=== PATIENT | male | born 1955 | race Caucasian/White ===

== ENCOUNTER 2017-03-01 08:48 | Day surgery (SDC) | payer BC ==
[~2017-03-01 08:48] MED LIST: ALPRAZolam 0.5 MG TAB PO PRN; ASPIRIN 325 MG TAB PO STA; ATORVASTATIN 80 MG TAB PO STA; NITROGLYCERIN SL TABS 0.4 MG TAB SUBLINGUAL PRN; SODIUM CHLORIDE 0.9% 1,000 ML in EMPTY BAG 1 BAG IV ONE
[2017-03-01 09:20] VITALS: RESP 18
[2017-03-01] MEDS: ALPRAZolam 0.25 MG TAB PO PRN ×2 (09:30→21:22)
[2017-03-01 09:31] LABS: Basophils # (A) 0.1 k/uL (0-0.2); Basophils % (A) 1 %; Eosinophils # (A) 0.3 k/uL (0-0.7); Eosinophils % (A) 4 %; HCT 42.5 % (39.0-53.0); HDW 2.72; HGB 14.6 gm/dL (13.0-17.5); Luc # (Auto) 0.07; Luc % (Auto) 1; Lymphocytes # (A) 1.8 k/uL (1.0-4.8); Lymphocytes % (A) 22 %; MCH 31.5 pg (25.0-35.0); MCHC 34.3 g/dL (31.0-37.0); MCV 91.7 fL (80.0-100.0); Mean Platelet Volume 8.3; Monocytes # (A) 0.5 k/uL (0-1.0); Monocytes % (A) 6 %; Neutrophils # (A) 5.6 k/uL (1.3-7.7); Neutrophils % (A) 67 %; RBC 4.64 m/uL (4.30-5.90); RDW 12.7 % (11.5-15.5); WBC 8.4 k/uL (3.8-10.6); WBC (Perox) 8.22
[2017-03-01 09:38] LABS: Anion Gap 7 mmol/L; Blood Urea Nitrogen 11 mg/dL (9-20); Calcium 8.7 mg/dL (8.4-10.2); Carbon Dioxide 23 mmol/L (22-30); Chloride 106 mmol/L (98-107); Glucose 95 mg/dL (74-99); Non-African American GFR(MDRD) >60 (>60 ml/min/1.73 sqM); Potassium 4.2 mmol/L (3.5-5.1); Sodium 136 mmol/L (137-145)
[2017-03-01] MEDS ORDERED: fentaNYL (PF) 50 MCG/ML 2 ML AMP ONE (10:18)
[2017-03-01] MEDS ORDERED: LIDOCAINE 2% INJ 20 MG/ML (20 ML MDV) ONE (10:18)
[2017-03-01] MEDS ORDERED: MIDAZOLAM 2 MG/2 ML VIAL ONE (10:18)
[2017-03-01] MEDS ORDERED: fentaNYL (PF) 50 MCG/ML 2 ML AMP IVP ONE (10:30)
[2017-03-01] MEDS: MIDAZOLAM 2 MG/2 ML VIAL IVP ONE ×2 (10:30→10:33)
[2017-03-01] MEDS ORDERED: LIDOCAINE 2% INJ 20 MG/ML SQ ONE (10:33)
[2017-03-01] MEDS ORDERED: BIVALIRUDIN BOLUS 250 MG/50 ML IV ONE (11:15)
[2017-03-01] MEDS ORDERED: BIVALIRUDIN 250 MG in SODIUM CHLORIDE 0.9% 50 ML IV ONE ×2 (11:15→12:01)
[2017-03-01] MEDS ORDERED: NITROGLYCERIN 1000MCG/10ML SYRINGE INTRACORON ONE ×2 (11:23→12:05)
[2017-03-01] MEDS ORDERED: NITROGLYCERIN 1000MCG/10ML SYRINGE IV ONE (11:23)
--- NOTE | 2017-03-01 11:32 | P.PCN ---
Date of Procedure: 03/01/17 Preoperative Diagnosis: Angina and exertional shortness of breath Postoperative Diagnosis: Diffuse coronary artery disease with total occlusion of the distal RCA and also occlusion of the graft to the diagonal Procedure(s) Performed: HISTORY: This is a 61-year-old gentleman with history of ischemic heart disease with previous bypass surgery and also stent placement of the proximal RCA, has been experiencing exertional shortness of breath, which is recent in onset. His EKG showed some T-wave inversion in anterior leads. His echocardiogram showed fair LV function with mild hypokinesis of the inferior wall. Patient is advised to have a cardiac catheterization for definitive diagnosis CONSENT:I have discussed the risks, benefits and alternative therapies for the above-mentioned procedure and for both sedation/analgesia as well as necessary blood product administration, if indicated, as they pertain to this patient. The patient has indicated understanding and acceptance of the risks and procedures discussed. PROCEDURE: Patient was brought to the lab in a fasting state. Patient was given some IV sedation. The right groin is infiltrated with lidocaine and right femoral artery was entered using Seldinger technique. A 6-Swazi catheter was left in place and selective coronary arteriography and selective injection of the 2 vein grafts and the BENOIT graft was performed. Patient tolerated the procedure well. Femoral angiogram was performed . Patient went on to have stent placement of the RCA by Dr. ANDRES Billingsley. Conscious Sedation: Versed : 2 mg Fentanyl : 50g Duration :30minutes HEMODYNAMICS: The aortic pressure is about 160/80. Left middle end-diastolic pressure is 20-25. There was no gradient across the aortic valve SELECTIVE CORONARY ARTERIOGRAPHY: LEFT MAIN: This is a normal length with about 40-50% distal stenosis THE LEFT ANTERIOR DESCENDING CORONARY ARTERY: . This is totally occluded after first diagonal branch. The first diagonal branch has about 60-70% stenosis. THE LEFT CIRCUMFLEX AND IS CORONARY ARTERY: This is a moderate caliber vessel with a diffuse disease. There is a small OM branch which has ostial 80-90% stenosis which is stable compared to the previous studies THE RIGHT CORONARY ARTERY: . This is a good caliber vessel and dominant in distribution. The proximal RCA has a mild in-stent stenosis. The distal RCA is totally blocked. There were collaterals from the LAD to the distal RCA. The vein graft to the circumflex: This is totally occluded at the proximal anastomosis. The vein graft to the diagonal: This is totally occluded at the proximal anastomosis. The BENOIT graft to the LAD: This is patent throat its length and also to this, stenosis. There is good flow to the LAD which provides collateral to the RCA.. LEFT VENTRICULOGRAPHY: This was not performed FINAL IMPRESSION: Total occlusion of the distal RCA. Total occlusion of the vein graft to the circumflex and also to the diagonal. Patent BENOIT graft to the LAD. Diffuse disease involving the circumflex, which is stable compared to the previous study. There is a borderline lesion in the proximal portion of the diagonal PLAN: Stent placement of the distal RCA being done by Dr. ANDRES Billingsley. PROGNOSIS: fair.
[2017-03-01] MEDS ORDERED: fentaNYL (PF) 50 MCG/ML 2 ML AMP IV ONE (11:35)
[2017-03-01] MEDS ORDERED: TICAGRELOR 90 MG TAB ONE (12:03)
[2017-03-01] MEDS ORDERED: TICAGRELOR 90 MG TAB PO ONE (12:05)
[2017-03-01] MEDS ORDERED: IOHEXOL 350 MG/ML 125ML BOTTLE INJ ONE (12:11)
[2017-03-01] MEDS ORDERED: RX INFO: IV CONTRAST WAS GIVEN 1 EACH MISC MISCELLANE PRN (12:46)
[2017-03-01] MEDS ORDERED: NITROGLYCERIN SL TABS 0.4 MG TAB SUBLINGUAL PRN (12:46)
[2017-03-01] MEDS ORDERED: ZOLPIDEM 5 MG TAB PO PRN (12:46)
[2017-03-01] MEDS ORDERED: ATROPINE SULFATE 0.1 MG/ML 10ML SYRINGE IV PRN (12:46)
[2017-03-01] MEDS ORDERED: MAG HYDROX/AL HYDROX/SIMETH 30 ML CUP PO PRN (12:46)
[2017-03-01] MEDS: ISOSORBIDE MONONITRATE ER 30 MG TAB.ER.24H PO SCH (13:30)
--- NOTE | 2017-03-01 14:22 | XR ---
EXAMINATION TYPE: XR chest 1V portable DATE OF EXAM: 03/01/2017 Comparison: 08/16/[address] 02/22/2017 Clinical History: 62-year-old male shortness of breath Findings: Median sternotomy wires are present with post-CABG clips. Heart is mildly enlarged. Mild diffuse inte rstitial prominence as a chronic appearance. No jose angel consolidation or significant pleural effusion. Prominent aortic knob likely corresponds to the vascular ectasia seen on recent CT. Surgical staple a t the left shoulder. Impression: Borderline to mild cardiomegaly and chronic appearing changes. Ectatic thoracic aorta. No acute proce ss seen.
[2017-03-01] MEDS: SODIUM CHLORIDE 0.9% 1,000 ML IV SCH (16:21)
[2017-03-01] MEDS: VARENICLINE 1 MG TAB PO SCH (18:38)
[2017-03-01] MEDS: METOPROLOL TARTRATE 25 MG TAB PO SCH (21:22)
[2017-03-01] MEDS: TICAGRELOR 90 MG TAB PO SCH (21:22)
--- NOTE | 2017-03-01 21:58 | LTR ---
DATE OF SERVICE: 03/01/[address] Larios: Thank you for the opportunity to participate in the care of Mr. Lucho Segundo. Please find enclosed a detailed PTCA report for the records. He had an excellent angiographic result. The previously stented proximal RCA was still patent. Thank you for your referral and please call for questions. With kindest regards, Sincerely, GALILEO / RADHAN: [id number] /
--- NOTE | 2017-03-01 21:58 | PTCA ---
PERCUTANEOUSTRANS CORORONARY ANGIOGRAPHY DATE OF SERVICE: 03/01/2017. PROCEDURE: PTCA and stenting of totally occluded distal right coronary artery and PLV branch. PERFORMED BY: Dr. Amos Billingsley. SEDATION: Moderate conscious sedation time 60 minutes. CLINICAL INFORMATION: Mr. Lucho Segundo is a 62-year-old gentleman history of CAD, hypertension, hyperlipidemia, who underwent stenting of proximal RCA performed by me in the past. He also has a previous bypass surgery with a vein graft to the diagonal that has been occluded as well. He was admitted to the hospital because of symptoms of exertional shortness of breath, which appeared to be anginal equivalence and Dr. Lockhart performed a cardiac cath, which revealed that the previously stented RCA was widely patent with a 30% narrowing, but distally the vessel was totally occluded without much flow and there was collateralization already. He was advised intervention that was performed in the same setting. PROCEDURE NOTE: The existing 6-Kazakh introducer in the right femoral artery was used to perform the procedure. A standard right Kathi type guide catheter was used to cannulate the right coronary artery. A BMW wire was used to cross the lesion. Wire was kept distally. Using a 2.5 caliber 12 mm long trek balloon, I dilated the distal RCA as well as the PLV branch of RCA. The wire was actually in the PDA branch. It was repositioned in the PLV branch. I then noted that there was a significant lesion in the PLV branch of a good caliber vessel. PLV was much smaller than PDA. There was also a distal RCA lesion and right at the bifurcation there was a 99% stenosis. This was a superdominant RCA. I advanced another for a whisper wire and positioned this in the PLV branch distally. The PLV lesion was dilated with a 2.5 caliber 12 mm long NC Trek balloon. I then stented the PLV branch with a 2.5 caliber 8 mm long Xience stent. The distal RCA was addressed with 2 stents, one was a 12 mm long 3.25 caliber stent right at the bifurcation and another one proximal to it was a 15 mm long 3.25 caliber Xience stent. With 3 stents, one in the PLV branch and two in the distal RCA the patient had an excellent angiographic result. He had some chest discomfort but did not have significant EKG changes. Excellent angiographic result without complication was achieved. The patient received Angiomax bolus and infusion as per protocol. He received 180 mg of Brilinta and the sheath was then taken out and an Angio-Seal device used to secure hemostasis. He was sent to the room in a stable condition. Excellent angiographic result without complication was achieved. The distal RCA and PL branch, RCA were dilated with drug-eluting stents. MMODL / IJN: [id number] /
[2017-03-01] MEDS: ACETAMINOPHEN TAB 325 MG TAB PO PRN (22:04)
[2017-03-02 06:25] LABS: Basophils # (A) 0.1 k/uL (0-0.2); Basophils % (A) 1 %; CH 30.9; CHCM 34.3; Eosinophils # (A) 0.3 k/uL (0-0.7); Eosinophils % (A) 4 %; HCT 41.5 % (39.0-53.0); HDW 2.48; HGB 14.1 gm/dL (13.0-17.5); Luc # (Auto) 0.13; Luc % (Auto) 2; Lymphocytes # (A) 1.6 k/uL (1.0-4.8); Lymphocytes % (A) 20 %; MCH 30.8 pg (25.0-35.0); MCV 90.6 fL (80.0-100.0); Mean Platelet Volume 8.6; Monocytes # (A) 0.4 k/uL (0-1.0); Monocytes % (A) 5 %; Neutrophils # (A) 5.6 k/uL (1.3-7.7); Neutrophils % (A) 69 %; RBC 4.58 m/uL (4.30-5.90); RDW 13.9 % (11.5-15.5); WBC 8.1 k/uL (3.8-10.6); WBC (Perox) 7.77
[2017-03-02] MEDS: SODIUM CHLORIDE 0.9% 1,000 ML IV SCH (06:33)
[2017-03-02 06:36] LABS: Anion Gap 6 mmol/L; Blood Urea Nitrogen 11 mg/dL (9-20); Calcium 9.2 mg/dL (8.4-10.2); Carbon Dioxide 26 mmol/L (22-30); Chloride 103 mmol/L (98-107); Glucose 96 mg/dL (74-99); Non-African American GFR(MDRD) >60 (>60 ml/min/1.73 sqM); Potassium 4.6 mmol/L (3.5-5.1); Sodium 135 mmol/L (137-145)
[2017-03-02] MEDS ORDERED: PANTOPRAZOLE 40 MG TABLET PO SCH (07:30)
[2017-03-02] MEDS: ISOSORBIDE MONONITRATE ER 30 MG TAB.ER.24H PO SCH (08:40)
[2017-03-02] MEDS: VARENICLINE 1 MG TAB PO SCH (08:40)
[2017-03-02] MEDS: METOPROLOL TARTRATE 25 MG TAB PO SCH (08:41)
[2017-03-02] MEDS: TICAGRELOR 90 MG TAB PO SCH (08:42)
[2017-03-02] MEDS ORDERED: buPROPion XL 150 MG TAB.ER.24H PO SCH (09:00)
[2017-03-02] MEDS ORDERED: SERTRALINE 100 MG TAB PO SCH (09:00)
[2017-03-02] MEDS ORDERED: ASPIRIN 81 MG PO SCH (09:00)
[2017-03-02] MEDS ORDERED: ISOSORBIDE MONONITRATE ER 30 MG TAB.ER.24H PO SCH (09:00)
[2017-03-02] MEDS ORDERED: LISINOPRIL 20 MG TAB PO SCH (09:00)
--- NOTE | 2017-03-02 11:41 | P.PN ---
Subjective Progress Note Date: 03/02/17 Principal diagnosis: Discharge note His is a 61-year-old gentleman with history of ischemic heart disease with prior bypass surgery and also stent placement of the proximal RCA, had been experiencing symptoms of exertional shortness of breath. For this reason Dr. Lockhart brought the patient to the hospital to undergo cardiac catheterization. Subsequent to the heart cath patient underwent angioplasty with stenting of the distal right coronary artery. He was seen and examined this morning, denies any chest pain or difficulty in breathing. He has been up ambulating without any difficulty. EKG shows normal sinus rhythm with no changes from post-PCI. Hemodynamically stable. Objective - Vital Signs Vital signs: Vital Signs Temp 96.9 F L 03/02/17 08:00 Pulse 67 03/02/17 08:00 Resp 18 03/02/17 08:00 BP 132/82 03/02/17 08:00 Pulse Ox 98 03/02/17 08:00 Intake & Output 03/01/17 03/02/17 03/02/17 18:59 06:59 18:59 Intake Total 497.9 600 400 Output Total 900 Balance 497.9 -300 400 Weight 109.769 kg 111.2 kg Intake: IV 257.9 Intake, IV Titration 600 Amount Sodium Chloride 0.9% 1, 600 000 ml @ 75 mls/hr IV . [id number] [facility] Rx#:[id number] Oral 240 400 Output: Urine 900 Other: Voiding Method Urinal Urinal # Voids 1 - Exam PHYSICAL EXAMINATION: HEENT: Head is atraumatic, normocephalic. Pupils equal, round. Neck is supple. There is no elevated jugular venous pressure. HEART EXAMINATION: Heart S1, S2 normal. No murmur or gallop heard. CHEST EXAMINATION: Lungs are clear to auscultation and precussion. No chest wall tenderness is noted on palpation or with deep breathing. ABDOMEN: Soft, nontender. Bowel sounds are heard. No organomegaly noted. Right groin soft, no evidence of any hematoma. EXTREMITIES: 2+ peripheral pulses with no evidence of peripheral edema and no calf tenderness noted. NEUROLOGIC patient is awake, alert and oriented -3. . - Labs CBC & Chem 7: 03/02/17 05:43 03/02/17 05:43 Labs: Abnormal Lab Results - Last 24 Hours (Table) 03/02/17 Range/Units 05:43 Sodium 135 L (137-145) mmol/L Assessment and Plan Plan: Assessment and plan 1 status post angioplasty with stenting of the right coronary artery. #2 known history of coronary artery disease with prior CABG and stenting in the past #3 hypertension #4 hyperlipidemia Plan Patient may be able to be discharged home today. He will have a follow-up appointment with Dr. Lockhart in the office post discharge. He shouldn't may be discharged home today on aspirin 81 mg daily, Lipitor 80 mg daily, Wellbutrin 150 mg daily, Imdur 30 mg daily, lisinopril 20 mg daily, metoprolol tartrate 25 mg one tablet by mouth twice a day, Brilinta 90 mg by mouth twice a day, Chantix 1 mg twice a day and sublingual nitroglycerin as needed for chest pain. Patient has been provided prescriptions for all of the above medications and he has been educated regarding them as well. DNP note has been reviewed, I agree with a documented findings and plan of care. Patient was seen and examined.
[2017-03-02 11:52] VITALS: BMI 37.3
[2017-03-02] MEDS: ACETAMINOPHEN TAB 325 MG TAB PO PRN (12:15)
[2017-03-02 12:41] VITALS: BP 123/72; PULSE 72; TEMP 96.7
[2017-03-02] MEDS ORDERED: ATORVASTATIN 80 MG TAB PO SCH (21:00)
== END 2017-03-02 13:41 | disposition home or self-care (01) ==
LOC: CATHCVL 08:48 → 6SEL 12:48 → CATHCVL 03-02 13:41
PROVIDERS: ATTEND Internal Medicine Cardiovascular Disease
DX: I25.110 Atherosclerotic heart disease of native coronary artery with unstable angina pectoris (principal); I25.700 Atherosclerosis of coronary artery bypass graft(s), unspecified, with unstable angina pectoris; I25.82 Chronic total occlusion of coronary artery; I77.810 Thoracic aortic ectasia; R00.1 Bradycardia, unspecified; Z95.5 Presence of coronary angioplasty implant and graft; I10 Essential (primary) hypertension; I25.2 Old myocardial infarction; E78.00 Pure hypercholesterolemia, unspecified; E66.9 Obesity, unspecified; Z68.35 Body mass index [BMI] 35.0-35.9, adult; Z82.49 Family history of ischemic heart disease and other diseases of the circulatory system; F17.210 Nicotine dependence, cigarettes, uncomplicated; Z79.82 Long term (current) use of aspirin; Z79.899 Other long term (current) drug therapy
CPT/HCPCS: 93459; 80048 ×2; 85025 ×2; 71010; C9600; C9601; C1769 ×3; C1760; C1887; C1725 ×2; C1894; C1874; J2001; J2250; J3010; J0583; Q9967

== ENCOUNTER 2017-07-05 16:49 | Observation (INO) | payer BC ==
[2017-07-05] MEDS ORDERED: NITROGLYCERIN OINT 1 INCH/GM PACKET TOPICAL STA (17:20)
--- NOTE | 2017-07-05 17:29 | ED ---
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 He states he's short of breath also time now/with the least amount of exertion he denies any overt chest pain this time no fevers chills nausea vomiting sweats at this time but he has had some sweats associated with this. He again currently is pain- free does complain some dyspnea at rest but mostly with exertion. MD Complaint: chest pain, other - Related Data Home Medications Medication Instructions Recorded Confirmed Enalapril [Vasotec] 10 mg PO DAILY 02/28/17 07/05/17 Metoprolol Tartrate 25 mg PO BID 02/28/17 07/05/17 Sertraline HCl [Zoloft] 100 mg PO DAILY 02/28/17 07/05/17 buPROPion XL [Wellbutrin XL] 150 mg PO DAILY 02/28/17 07/05/17 Omeprazole [PriLOSEC] 20 mg PO AC-BRKFST 03/01/17 07/05/17 HYDROcodone/APAP 7.5-325MG [[place] 1 tab PO Q4-6H PRN 07/05/17 07/05/17 7.5-325] Isosorbide Mononitrate ER [Imdur] 60 mg PO DAILY 07/05/17 07/05/17 Previous Rx's Medication Instructions Recorded Aspirin 81 mg PO DAILY #30 chew 03/02/17 Atorvastatin [Lipitor] 80 mg PO HS #30 tab 03/02/17 Ticagrelor [Brilinta] 90 mg PO BID tab 03/02/17 Allergies Allergy/AdvReac Type Severity Reaction Status Date / Time No Known Allergies Allergy Verified 07/05/17 17:27 Review of Systems ROS Statement: Those systems with pertinent positive or pertinent negative responses have been documented in the HPI. ROS Other: All systems not noted in ROS Statement are negative. EKG Findings - EKG Results: EKG: interpreted by ERMD (Normal sinus rhythm rate 75 appear interval 150 to QRS 104 QT since QTC of 4:30/489 left exodeviation evidence of inferior posterior infarct of indeterminate age.) Past Medical History Past Medical History: Coronary Artery Disease (CAD), Myocardial Infarction (ID) , Pneumonia Additional Past Medical History / Comment(s): See Chantelle's H&P,SOB, Pneumonia January Last Myocardial Infarction Date:: 2009 History of Any Multi-Drug Resistant Organisms: None Reported Past Surgical History: Appendectomy, Coronary Bypass/CABG, Heart Catheterization With Stent, Hernia Repair Additional Past Surgical History / Comment(s): CABG-at age 38-3 vessel,nishi inguinal hernia,umbilical hernia,lt shoulder surgery Past Anesthesia/Blood Transfusion Reactions: No Reported Reaction Date of Last Stent Placement:: 2009 Past Psychological History: No Psychological Hx Reported Smoking Status: Former smoker Past Alcohol Use History: Occasional Past Drug Use History: None Reported - Past Family History Mother Family Medical History: Coronary Artery Disease (CAD), Pulmonary Embolus Additional Family Medical History / Comment(s): CABG Father Family Medical History: Coronary Artery Disease (CAD) Additional Family Medical History / Comment(s): CABG, traumatic golf cart General Exam - General Exam Comments Initial Comments: This is a well-developed well-nourished awake alert oriented 3 male Limitations: no limitations General appearance: alert, in no apparent distress Head exam: Present: atraumatic, normocephalic, normal inspection Eye exam: Present: normal appearance, PERRL, EOMI. Absent: scleral icterus, conjunctival injection, periorbital swelling ENT exam: Present: normal exam, mucous membranes moist Neck exam: Present: normal inspection. Absent: tenderness, meningismus, lymphadenopathy Respiratory exam: Present: normal lung sounds bilaterally. Absent: respiratory distress, wheezes, rales, rhonchi, stridor Cardiovascular Exam: Present: regular rate, normal rhythm, normal heart sounds. Absent: systolic murmur, diastolic murmur, rubs, gallop, clicks GI/Abdominal exam: Present: soft, normal bowel sounds. Absent: distended, tenderness, guarding, rebound, rigid Extremities exam: Present: normal inspection, full ROM, normal capillary refill. Absent: tenderness, pedal edema, joint swelling, calf tenderness Back exam: Present: normal inspection Neurological exam: Present: alert, oriented X3, CN II-XII intact Psychiatric exam: Present: normal affect, normal mood Skin exam: Present: warm, dry, intact, normal color. Absent: rash Course Vital Signs 07/05/17 16:57 Temperature 97.4 F L Pulse Rate 96 Respiratory 18 Rate Blood Pressure 135/83 O2 Sat by Pulse 96 Oximetry Chest Pain MDM - MDM I did review the imaging and report no acute findings. Patient will be admitted I did discuss case with Dr. Yrn Lockhart will be consulted Disposition Clinical Impression: Unstable angina pectoris Disposition: ADMITTED IP TO THIS HOSP Condition: Stable Referrals: Jamel Larios MD [Primary Care Provider] - 1-2 days
[2017-07-05 17:48] LABS: Basophils % (A) 0 %; Eosinophils # (A) 0.3 k/uL (0-0.7); Eosinophils % (A) 3 %; HCT 40.6 % (39.0-53.0); HGB 14.3 gm/dL (13.0-17.5); Lymphocytes % (A) 23 %; MCH 30.3 pg (25.0-35.0); MCHC 35.2 g/dL (31.0-37.0); Mean Platelet Volume 7.9; Monocytes # (A) 0.6 k/uL (0-1.0); Monocytes % (A) 6 %; Neutrophils # (A) 5.7 k/uL (1.3-7.7); Neutrophils % (A) 66 %; Platelet Count 181 k/uL (150-450); RBC 4.72 m/uL (4.30-5.90); RDW 13.3 % (11.5-15.5); WBC 8.7 k/uL (3.8-10.6)
[2017-07-05 17:59] LABS: ALT 64 U/L (21-72); AST 57 U/L (17-59); Alkaline Phosphatase 72 U/L (38-126); Anion Gap 11 mmol/L; Blood Urea Nitrogen 16 mg/dL (9-20); Calcium 9.3 mg/dL (8.4-10.2); Carbon Dioxide 25 mmol/L (22-30); Chloride 103 mmol/L (98-107); Glucose 115 mg/dL (74-99); Magnesium 1.7 mg/dL (1.6-2.3); Partial Thromboplastin Time 22.9 sec (22.0-30.0); Prothrombin Time 10.2 sec (9.0-12.0); Sodium 139 mmol/L (137-145); Total Protein 6.2 g/dL (6.3-8.2)
[2017-07-05 18:11] LABS: Creatine Kinase 155 U/L (55-170)
--- NOTE | 2017-07-05 18:11 | XR ---
EXAMINATION TYPE: XR chest 2V DATE OF EXAM: 07/05/2017 COMPARISON: 03/01/2017 HISTORY: Chest pain TECHNIQUE: Frontal and lateral views of the chest are obtained. FINDINGS: There is no heart failure nor confluent pneumonic infiltrate. Costophrenic angles are kacie r. There are sternal wires. Bony thorax is intact. IMPRESSION: No active cardiopulmonary disease. Normal heart. No change.
[2017-07-05] MEDS ORDERED: HEPARIN SODIUM,PORCINE 5,000 UNIT/ML 1 ML VIAL IV ONE (18:16)
[2017-07-05] MEDS ORDERED: NITROGLYCERIN SL TABS 0.4 MG TAB SUBLINGUAL PRN (18:16)
[2017-07-05 18:23] LABS: Creatine Kinase MB 1.9 ng/mL (0.0-2.4); Troponin I <0.012 ng/mL (0.000-0.034)
[2017-07-05] MEDS: HYDROcodone/APAP 7.5-325MG 1 EACH TAB PO PRN (18:47)
[2017-07-05] MEDS: HEPARIN SOD,PORK IN 0.45% NACL 25,000 UNIT in 0.45% NACL 1 500ML.BAG IV SCH (18:54)
[2017-07-05] MEDS ORDERED: MAGNESIUM HYDROXIDE 2,400 MG/10 ML CUP PO PRN (19:02)
[2017-07-05] MEDS ORDERED: PROCHLORPERAZINE 5 MG TAB PO PRN (19:02)
[2017-07-05] MEDS ORDERED: ACETAMINOPHEN TAB 325 MG TAB PO PRN (19:02)
[2017-07-05] MEDS ORDERED: CALCIUM CARBONATE 500 MG CHEWABLE PO PRN (19:02)
[2017-07-05] MEDS ORDERED: LORazepam 2 MG/ML INJ IV STA (19:07)
--- NOTE | 2017-07-05 20:31 | HP ---
HISTORY AND PHYSICAL DATE OF ADMISSION: 07/05/2017 PRESENTING COMPLAINT: Short of breath. 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 The patient at the age of 38 had a three-vessel coronary bypass. In February 2017 the patient underwent angioplasty and stenting to the RCA and the PLV branch. The patient's chronic other stable medical conditions include anxiety, GERD, hypertension, hyperlipidemia, herniated disc C6 to C8, and patient is due to go down to [facility] for surgery by Dr. Bingham. The patient yesterday just was sitting down and noticed heaviness in his chest. He was short of breath and was easily getting short- winded doing minimal activity. No chest pressure per se; had some episodes of a little bit of perspiration, which he does get. There was no dizziness, no lightheadedness. He decided to come to see Dr. Lockhart in the office. EKG did show some EKG changes. He was sent in to get admitted for a cardiac catheterization. Patient's is at the bedside. Patient has pain in the left arm, but that is from his radiation from his C6, C7, C8, which is present all the time. He denies any swelling in the lower extremity. REVIEW OF SYSTEMS: CONSTITUTIONAL: None. HEENT: None. RESPIRATORY: As above. CARDIOVASCULAR: As above. No orthopnea. No PND. GENITOURINARY: None. MUSCULOSKELETAL: As above. DERMATOLOGICAL: None. HEMATOLOGICAL: None. LYMPHATICS: None. PSYCHIATRY: Very anxious. NEUROLOGICAL: Referred pain to the left arm from neck pain. PAST MEDICAL HISTORY: 1. Coronary artery disease with coronary artery bypass and stent to the RCA and PLV branch. 2. Anxiety. 3. GERD. 4. Hypertension. 5. Hyperlipidemia. 6. Herniated discs, C6 to C8, pending surgery. PAST SURGICAL HISTORY: 1. Appendectomy. 2. Coronary artery bypass at age 38. 3. Umbilical hernia repair. 4. Left shoulder surgery in 2009. SOCIAL HISTORY: The patient smoked for over 30 years, a pack a day; stopped in January 2017. The patient is . Currently not working. FAMILY HISTORY: Coronary artery disease, pulmonary embolism. HOME MEDICATIONS: 1. Wellbutrin XL 150 mg p.o. daily. 2. Brilinta 90 mg p.o. b.i.d. 3. Zoloft 100 mg p.o. daily. 4. Prilosec 20 mg with breakfast. 5. Lopressor 25 p.o. b.i.d. 6. Imdur ER 60 mg p.o. daily. 7. [place] 7.5 one tablet q.4 p.r.n. 8. Vasotec 10 mg p.o. daily. 9. Lipitor 80 mg at bedtime. 10.Aspirin 81 mg p.o. daily. ALLERGIES: NONE. PHYSICAL EXAMINATION: BMI 36.6. Temperature 97.1, pulse 66, respiration 18, blood pressure 111/64, pulse ox 96% on room air. GENERAL APPEARANCE: Well built, BMI 36.6. Lying in bed, very anxious-appearing. EYES: Pupils equal. Conjunctivae normal. HEENT: External appearance of nose and ears normal. Oral cavity normal. NECK: Short, thick. JVD unable to assess. Mass not palpable. RESPIRATORY: Effort increased. LUNGS: Diminished breath sounds. CARDIOVASCULAR: First and second sounds normal. No edema. ABDOMEN: Distended, soft. Liver and spleen not palpable. LYMPHATIC: No lymph node palpable in neck or axillae. PSYCHIATRY: Alert and oriented x3. Mood and affect very anxious-appearing. NEUROLOGICAL: Pupils equal. Cranial nerves grossly intact. Power and sensation grossly intact. INVESTIGATIONS: White count 8.7, hemoglobin 14.3, potassium 4. BUN and creatinine are normal. Troponin less than 0.012. EKG shows flipped T-waves in V1, V2, and patient has deep Q-waves in III and aVF. ASSESSMENT: 1. This is a patient with known coronary artery disease with stent to the RCA and PLV in February of 2017. Presented with sudden onset of shortness of breath. Troponin is negative after 24 hours, but with flipped T-waves in the anterior chest, the concern of course is of acute coronary syndrome. At the same time, need to rule out pulmonary embolism. 2. Anxiety not otherwise specified. 3. Gastroesophageal reflux disease. 4. Essential hypertension. 5. Hyperlipidemia. 6. Herniated disc, C6 to C8, pending surgery. 7. Obesity; body mass index of 36.6. PLAN: Home medications will be resumed. Patient was put on IV heparin. Patient is already on aspirin. Will send off for D-dimer. If the D-dimer is positive, we will then proceed with a CT angio of the chest. Care was discussed the patient and . Questions were answered. Cardiology is already aware of the patient. Questions were answered. GALILEO / RADHAN: [id number] /
[2017-07-05] MEDS ORDERED: RX INFO: IV CONTRAST WAS GIVEN 1 EACH MISC MISCELLANE PRN (21:11)
[2017-07-05] MEDS: METOPROLOL TARTRATE 25 MG TAB PO SCH (21:35)
[2017-07-05] MEDS: ATORVASTATIN 80 MG TAB PO SCH (21:35)
[2017-07-05] MEDS: TICAGRELOR 90 MG TAB PO SCH (21:35)
[2017-07-05] MEDS: SODIUM CHLORIDE 0.9% 1,000 ML IV SCH (21:36)
--- NOTE | 2017-07-05 21:43 | CT ---
EXAMINATION TYPE: CT chest angio for PE DATE OF EXAM: 07/05/2017 COMPARISON: 3 views HISTORY: Elevated D-dimer CT DLP: 603.4 mGycm Automated exposure control for dose reduction was used. CONTRAST: CT Chest for pulmonary embolism performed with with IV Contrast, patient injected with 70 mL of Omnip aque 350. FINDINGS: There are 3-D post processed images. FINDINGS: The lungs are clear of consolidation. There is no evidence of a pulmonary mass. There is no pleural e ffusion. There is no pericardial effusion. Heart size is fairly normal. There are sternal wires. There is coronary artery calcification. I see no filling defects in the pulmonary arteries. There is mild ectasia of the ascending aorta measures 3.9 cm. There is no evidence of dissection. There is no mediastinal adenopathy. There is some spurring in the thoracic spine. IMPRESSION: No evidence of pulmonary embolism. Borderline aneurysm of the ascending aorta.
[2017-07-06] MEDS: NITROGLYCERIN OINT 1 INCH/GM PACKET TOPICAL SCH ×2 (01:00→17:03)
[2017-07-06] MEDS: HYDROcodone/APAP 7.5-325MG 1 EACH TAB PO PRN ×4 (01:02→18:04)
[2017-07-06 01:09] LABS: Creatine Kinase 125 U/L (55-170)
[2017-07-06 01:23] LABS: Creatine Kinase MB 1.5 ng/mL (0.0-2.4); Troponin I <0.012 ng/mL (0.000-0.034)
[2017-07-06 06:14] LABS: Cholesterol 130 mg/dL (<200); HDL Cholesterol 50 mg/dL (40-60); LDL Cholesterol,Calculated 50 mg/dL (0-99); Triglycerides 150 mg/dL (<150)
[2017-07-06] MEDS ORDERED: HEPARIN SODIUM,PORCINE 5,000 UNIT/ML 1 ML VIAL IV PRN (06:19)
[2017-07-06 06:24] LABS: Creatine Kinase 108 U/L (55-170)
[2017-07-06 06:38] LABS: Creatine Kinase MB 1.5 ng/mL (0.0-2.4); Troponin I <0.012 ng/mL (0.000-0.034)
[2017-07-06] MEDS: LISINOPRIL 20 MG TAB PO SCH (09:01)
[2017-07-06] MEDS: PANTOPRAZOLE 40 MG TABLET PO SCH (09:01)
[2017-07-06] MEDS: TICAGRELOR 90 MG TAB PO SCH ×2 (09:01→20:07)
[2017-07-06] MEDS: METOPROLOL TARTRATE 25 MG TAB PO SCH ×2 (09:01→20:07)
[2017-07-06] MEDS: ASPIRIN 81 MG PO SCH (09:02)
[2017-07-06] MEDS: ISOSORBIDE MONONITRATE ER 60 MG TAB.ER.24H PO SCH (09:02)
[2017-07-06] MEDS: buPROPion XL 150 MG TAB.ER.24H PO SCH (09:02)
[2017-07-06] MEDS ORDERED: IV FLUID CONTINUATION 1,000 ML IV ONE (09:10)
[2017-07-06] MEDS ORDERED: fentaNYL (PF) 50 MCG/ML 2 ML AMP ONE (09:20)
[2017-07-06] MEDS ORDERED: MIDAZOLAM 2 MG/2 ML VIAL ONE ×2 (09:20→10:18)
--- NOTE | 2017-07-06 09:21 | P.CRDCN ---
History of Present Illness Consult date: 07/06/17 History of present illness: This is a 62-year-old gentleman with history of previous bypass surgery and also inferior wall myocardial infarction had stent placement to the RCA in February 2017. Patient had total occlusion of the RCA which was being collateralized from left system. The BENOIT Was patent at the time with total occlusion of the vein graft to the diagonal and also vein graft to the circumflex. Circumflex coronary artery has diffuse disease with ostial stenosis of the OM branch. The diagonal branch of the LAD also had moderate disease. Patient came to the office yesterday with complaints of increasing shortness of breath with mild exertional activities and chest tightness. His EKG showed T-wave inversions in anterior leads. Patient is advised to have cardiac catheterization. Patient was admitted to the emergency room last night. His cardiac enzymes are negative. Patient's d-dimer was high. Patient had computed tomography scan of the chest which was negative for pulmonary emboli. Patient will be taken to carpenter labor supervisor today for further evaluation Review of Systems As per the chart Past Medical History Past Medical History: Coronary Artery Disease (CAD), Myocardial Infarction (SD) , Pneumonia Additional Past Medical History / Comment(s): See Chantelle's H&P,SOB, Pneumonia January Last Myocardial Infarction Date:: 2009 History of Any Multi-Drug Resistant Organisms: None Reported Past Surgical History: Appendectomy, Coronary Bypass/CABG, Heart Catheterization With Stent, Hernia Repair Additional Past Surgical History / Comment(s): CABG-at age 38-3 vessel,nishi inguinal hernia,umbilical hernia,lt shoulder surgery Past Anesthesia/Blood Transfusion Reactions: No Reported Reaction Date of Last Stent Placement:: 2009 Past Psychological History: No Psychological Hx Reported Smoking Status: Former smoker Past Alcohol Use History: Occasional Past Drug Use History: None Reported - Past Family History Mother Family Medical History: Coronary Artery Disease (CAD), Pulmonary Embolus Additional Family Medical History / Comment(s): CABG Father Family Medical History: Coronary Artery Disease (CAD) Additional Family Medical History / Comment(s): CABG, traumatic [place] cart Medications and Allergies Home Medications Medication Instructions Recorded Confirmed Type Enalapril [Vasotec] 10 mg PO DAILY 02/28/17 07/05/17 History Metoprolol Tartrate 25 mg PO BID 02/28/17 07/05/17 History Sertraline HCl [Zoloft] 100 mg PO DAILY 02/28/17 07/05/17 History buPROPion XL [Wellbutrin XL] 150 mg PO DAILY 02/28/17 07/05/17 History Omeprazole [PriLOSEC] 20 mg PO AC-BRKFST 03/01/17 07/05/17 History Aspirin 81 mg PO DAILY #30 chew 03/02/17 07/05/17 Rx Atorvastatin [Lipitor] 80 mg PO HS #30 tab 03/02/17 07/05/17 Rx Ticagrelor [Brilinta] 90 mg PO BID tab 03/02/17 07/05/17 Rx HYDROcodone/APAP 7.5-325MG [[place] 1 tab PO Q4-6H PRN 07/05/17 07/05/17 History 7.5-325] Isosorbide Mononitrate ER [Imdur] 60 mg PO DAILY 07/05/17 07/05/17 History Allergies Allergy/AdvReac Type Severity Reaction Status Date / Time No Known Allergies Allergy Verified 07/05/17 17:27 Physical Exam Vitals: Vital Signs Temp Pulse Resp BP Pulse Ox 07/06/17 06:27 71 18 115/66 96 07/06/17 01:04 71 18 144/89 96 07/05/17 21:08 81 18 149/94 98 07/05/17 19:04 97.1 F L 66 18 111/64 98 07/05/17 16:57 97.4 F L 96 18 135/83 96 Intake and Output 07/05/17 07/06/17 07/06/17 22:59 06:59 14:59 Other: Weight 112.491 kg GENERAL EXAM: Patient is alert and oriented and doesn't appear to be in any acute distress HEENT: Normocephalic. Normal reaction of pupils, equal size, normal range of extraocular motion. No erythema or exudates in the throat. NECK: No masses, no nuchal rigidity. CHEST: No chest wall deformity. LUNGS: Equal air entry with no crackles or wheeze. HEART: S1 and S2 normal with no audible mumurs or gallops. Regular rhythm, femorals equal on both sides.. ABDOMEN: No hepatosplenomegaly, normal bowel sounds, no guarding or rigidity. SKIN: No rashes CENTRAL NERVOUS SYSTEM: No focal deficits. EXTREMITIES: No cyanosis, clubbing or edema. Results 07/05/17 17:39 07/05/17 17:39 Cardiac Enzymes 07/05/17 07/05/17 07/06/17 Range/Units 17:39 17:39 00:33 AST 57 (17-59) U/L CK-MB (CK-2) 1.9 1.5 (0.0-2.4) ng/mL Troponin I <0.012 <0.012 (0.000-0.034) ng/mL 07/06/17 Range/Units 05:32 AST (17-59) U/L CK-MB (CK-2) 1.5 (0.0-2.4) ng/mL Troponin I <0.012 (0.000-0.034) ng/mL Coagulation 18 18 07/06/17 Range/Units 17:39 00:33 06:39 PT 10.2 (9.0-12.0) sec APTT 22.9 29.6 30.1 H (22.0-30.0) sec Lipids 07/06/17 Range/Units 05:32 Triglycerides 150 H (<150) mg/dL Cholesterol 130 (<200) mg/dL HDL Cholesterol 50 (40-60) mg/dL CBC 07/05/17 Range/Units 17:39 WBC 8.7 (3.8-10.6) k/uL RBC 4.72 (4.30-5.90) m/uL Hgb 14.3 (13.0-17.5) gm/dL Hct 40.6 (39.0-53.0) % Plt Count 181 (150-450) k/uL Comprehensive Metabolic Panel 07/05/17 Range/Units 17:39 Sodium 139 (137-145) mmol/L Potassium 4.0 (3.5-5.1) mmol/L Chloride 103 (98-107) mmol/L Carbon Dioxide 25 (22-30) mmol/L BUN 16 (9-20) mg/dL Creatinine 0.88 (0.66-1.25) mg/dL Glucose 115 H (74-99) mg/dL Calcium 9.3 (8.4-10.2) mg/dL AST 57 (17-59) U/L ALT 64 (21-72) U/L Alkaline Phosphatase 72 (38-126) U/L Total Protein 6.2 L (6.3-8.2) g/dL Albumin 4.0 (3.5-5.0) g/dL Current Medications Generic Name Dose Route Start Last Admin Trade Name Freq PRN Reason Stop Dose Admin Acetaminophen 650 mg 07/05/17 19:02 Tylenol Tab PO Q6HR PRN Mild Pain or Fever > 100.5 Hydrocodone Bitart/Acetaminophen 1 each 07/05/17 18:19 07/06/17 07:31 [place] 7.5-325 PO 1 each Q4H PRN Administration Pain Aspirin 81 mg 07/06/17 09:00 07/06/17 09:02 Aspirin PO 81 mg DAILY NABEEL Administration Atorvastatin Calcium 80 mg 07/05/17 21:00 07/05/17 21:35 Lipitor PO 80 mg HS NABEEL Administration Bupropion HCl 150 mg 07/06/17 09:00 07/06/17 09:02 Wellbutrin Xl PO 150 mg DAILY NABEEL Administration Calcium Carbonate/Glycine 1,000 mg 07/05/17 19:02 Tums PO Q4HR PRN Dyspepsia Heparin Sodium (Porcine) 0 unit 07/06/17 06:19 Heparin IV PER PROTOCOL PRN Low PTT Protocol Heparin Sodium/Sodium Chloride 500 mls @ 20 mls/hr 07/05/17 18:30 07/05/17 18 :54 25,000 unit/ Sodium Chloride IV 8.89 units/kg/hr .Q24H NABEEL 20 mls/hr Protocol Administration 8.89 UNITS/KG/HR Sodium Chloride 1,000 mls @ 20 mls/hr 07/05/17 18:30 07/05/17 21:36 Saline 0.9% IV 20 mls/hr .Q24H NABEEL Administration Isosorbide Mononitrate 60 mg 07/06/17 09:00 07/06/17 09:02 Imdur PO 60 mg DAILY NABEEL Administration Lisinopril 20 mg 07/06/17 09:00 07/06/17 09:01 Zestril PO 20 mg DAILY NABEEL Administration Magnesium Hydroxide 2,400 mg 07/05/17 19:02 Milk Of Magnesia PO DAILY PRN Constipation Metoprolol Tartrate 25 mg 07/05/17 21:00 07/06/17 09:01 Lopressor PO 25 mg BID NABEEL Administration Miscellaneous Information 1 each 07/05/17 21:11 Rx Info: Iv Contrast Was Given MISCELLANE 07/07/17 21:12 DAILY PRN Per Protocol Nitroglycerin 0.4 mg 07/05/17 18:16 Nitrostat SUBLINGUAL Q5M PRN Chest Pain Pantoprazole Sodium 40 mg 07/06/17 07:30 07/06/17 09:01 Protonix PO 40 mg AC-BRKFST NABEEL Administration Prochlorperazine Maleate 5 mg 07/05/17 19:02 Compazine PO Q8HR PRN Nausea And Vomiting Sertraline HCl 100 mg 07/06/17 09:00 Zoloft PO DAILY NABEEL Ticagrelor 90 mg 07/05/17 21:00 07/06/17 09:01 Brilinta PO 90 mg BID NABEEL Administration Intake and Output 07/05/17 07/06/17 07/06/17 22:59 06:59 14:59 Other: Weight 112.491 kg 07/05/17 17:39 07/05/17 17:39 EKG Interpretations (text) Sinus rhythm with deep T-wave inversion in the anterior leads and high lateral leads Assessment and Plan (1) CAD (coronary artery disease) Current Visit: Yes Status: Acute Code(s): I25.10 - ATHSCL HEART DISEASE OF [place] CORONARY ARTERY W/O ANG PCTRS SNOMED Code(s): 78997654 (2) Unstable angina pectoris Current Visit: Yes Status: Acute Code(s): I20.0 - UNSTABLE ANGINA SNOMED Code(s): 8835862 (3) Essential hypertension Current Visit: Yes Status: Acute Code(s): I10 - ESSENTIAL (PRIMARY) HYPERTENSION SNOMED Code(s): 66951965 (4) Hyperlipidemia Current Visit: Yes Status: Acute Code(s): E78.5 - HYPERLIPIDEMIA, UNSPECIFIED SNOMED Code(s): 47557296 Plan: Will proceed with cardiac catheterization for definitive diagnosis. Meanwhile we'll continue with current medical therapy including heparin, nitrates, beta blockers and lipid-lowering agent
[2017-07-06] MEDS: MIDAZOLAM 2 MG/2 ML VIAL IVP ONE ×4 (09:23→10:35)
[2017-07-06] MEDS: fentaNYL (PF) 50 MCG/ML 2 ML AMP IVP ONE ×3 (09:23→10:45)
[2017-07-06] MEDS ORDERED: LIDOCAINE 2% INJ 20 MG/ML SQ ONE (09:28)
[2017-07-06] MEDS ORDERED: BIVALIRUDIN BOLUS 250 MG/50 ML IV ONE (10:01)
[2017-07-06] MEDS ORDERED: BIVALIRUDIN 250 MG in SODIUM CHLORIDE 0.9% 50 ML IV ONE ×2 (10:02→10:31)
[2017-07-06] MEDS ORDERED: SODIUM CHLORIDE 0.9% 1,000 ML IV ONE (10:03)
--- NOTE | 2017-07-06 10:19 | P.PCN ---
Date of Procedure: 07/06/17 Description of Procedure: HISTORY: This is a 62-year-old gentleman with history of a previous inferior wall AL and aortocoronary bypass surgery who had a stent placement of the RCA with multiple stents in February 2017. Patient was admitted through the emergency room with complaints of exertional shortness of breath and chest tightness. His EKG showed T-wave inversions in anterior leads and also in 1 and aVL. His cardiac enzymes are negative. He is advised to have cardiac catheterization for definitive diagnosis CONSENT:I have discussed the risks, benefits and alternative therapies for the above-mentioned procedure and for both sedation/analgesia as well as necessary blood product administration, if indicated, as they pertain to this patient. The patient has indicated understanding and acceptance of the risks and procedures discussed. PROCEDURE: Patient was brought to the lab in a fasting state. Patient was given some IV sedation. The right groin is infiltrated with lidocaine and right femoral artery was entered using Seldinger technique. A 6-Ser[place] catheter was left in place and selective coronary arteriography and left ventriculography was performed. Patient tolerated the procedure well. Femoral angiogram was performed and Angio-Seal was applied for hemostasis. No immediate complications were noted and patient was transferred to [facility] in a stable condition Conscious Sedation: Versed 1mg Fentanyl 50 g Duration 25minutes HEMODYNAMICS: The aortic pressure is about 120/70. Left ventricle end- diastolic pressure was not measured SELECTIVE CORONARY ARTERIOGRAPHY: LEFT MAIN: Normal length with about 40% distal stenosis. THE LEFT ANTERIOR DESCENDING CORONARY ARTERY: This is a good caliber vessel which is totally occluded after giving rise to diagonal branch. The diagonal branch has about 80-90% stenosis THE LEFT CIRCUMFLEX AND IS CORONARY ARTERY:. This is a moderate caliber vessel giving rise to moderate caliber OM branch. The ostium of the OM branch has about 90-90% stenosis THE RIGHT CORONARY ARTERY:. This is a large caliber vessel with a diffuse plaque. The previous stents in the distal RCA are patent. There is about 90% stenosis in the mid PDA, which is chronic. THE BENOIT GRAFT TO THE LAD: This is patent at the proximal and distal anastomosis and also throat its length. The distal LAD seems to be free of any significant occlusive disease. The vein grafts to the diagonal and to the circumflex : The grafts were totally occluded from the previous studies LEFT VENTRICULOGRAPHY: Not performed FINAL IMPRESSION: Moderate disease in the left main and a significant disease involving the diagonal. There is also significant disease involving the OM branch of the circumflex which is chronic. The stents in the RCA are patent but there is a lesion in the PDA, which is 80-90% stenosed. PLAN: Possible stent placement of the [place] diagonal and [place] PDA. Continue maximal medical therapy PROGNOSIS:. Fair.
[2017-07-06] MEDS ORDERED: NITROGLYCERIN 1000MCG/10ML SYRINGE INTRACORON ONE (10:49)
[2017-07-06] MEDS ORDERED: IOHEXOL 350 MG/ML 125ML BOTTLE INJ ONE (10:59)
[2017-07-06] MEDS ORDERED: MAG HYDROX/AL HYDROX/SIMETH 30 ML CUP PO PRN (11:06)
[2017-07-06] MEDS ORDERED: NITROGLYCERIN SL TABS 0.4 MG TAB SUBLINGUAL PRN (11:06)
[2017-07-06] MEDS ORDERED: ATROPINE SULFATE 0.1 MG/ML 10ML SYRINGE IV PRN (11:06)
[2017-07-06] MEDS ORDERED: RX INFO: IV CONTRAST WAS GIVEN 1 EACH MISC MISCELLANE PRN (11:06)
[2017-07-06] MEDS ORDERED: ZOLPIDEM 5 MG TAB PO PRN (11:06)
[2017-07-06] MEDS ORDERED: SODIUM CHLORIDE 0.9% 1,000 ML IV SCH (11:15)
--- NOTE | 2017-07-06 12:01 | ECHOF ---
Referral Reason:sob MEASUREMENTS -------- HEIGHT: 175.3 cm WEIGHT: 112.5 kg BP: IVSd: 1.2 cm (0.6 - 1.1) LVIDd: 4.8 cm (3.9 - 5.3) LVPWd: 1.5 cm (0.6 - 1.1) IVSs: 2.1 cm LVIDs: 2.8 cm LVPWs: 1.9 cm Ao Diam: 3.6 cm (2.0 - 3.7) AV Cusp: 2.0 cm (1.5 - 2.6) LA Diam: 4.3 cm (2.7 - 3.8) MV EXCURSION: 22.256 mm (> 18.000) MV EF SLOPE: 140 mm/s (70 - 150) EPSS: 0.7 cm MV E Huey: 0.61 m/s MV DecT: 330 ms MV A Huey: 0.42 m/s MV E/A Ratio: 1.46 FINDINGS -------- Sinus rhythm. This was a technically difficult study with suboptimal views. The left ventricular size is normal. There is mild concentric left ventricular hypertrophy. Overa ll left ventricular systolic function is low-normal with, an EF between 50 - 55 %. Basal inferosept al LV wall motion is hypokinetic. The right ventricle is normal in size and function. The left atrium is mildly dilated. The right atrium is normal in size. 1.5mg of Definity was utilized for enhancement of images The aortic valve is trileaflet, and appears structurally normal. No aortic stenosis or regurgitation. There is trace mitral regurgitation. Trace tricuspid regurgitation present. The right ventricular systolic pressure, as measured by Dopp ler, is {RVSP}. Pulmonic valve appears structurally normal. The aortic root size is normal. The pericardium is normal. CONCLUSIONS -------- 1. Sinus rhythm. 2. This was a technically difficult study with suboptimal views. 3. The left ventricular size is normal. 4. There is mild concentric left ventricular hypertrophy. 5. Overall left ventricular systolic function is low-normal with, an EF between 50 - 55 %. 6. The right ventricle is normal in size and function. 7. The left atrium is mildly dilated. 8. The right atrium is normal in size. 9. Lumason used 10. The aortic valve is trileaflet, and appears structurally normal. No aortic stenosis or regurgitat ion. 11. There is trace mitral regurgitation. 12. Trace tricuspid regurgitation present. 13. The right ventricular systolic pressure, as measured by Doppler, is {RVSP}. 14. Pulmonic valve appears structurally normal. 15. The aortic root size is normal. 16. The pericardium is normal. DUST BOX WORKER: Yun Rangel RDCS
[2017-07-06] MEDS: LORazepam 2 MG/ML INJ IV PRN ×2 (13:27→20:07)
[2017-07-06] MEDS: SERTRALINE 100 MG TAB PO SCH (17:04)
[2017-07-06] MEDS: HEPARIN SOD,PORK IN 0.45% NACL 25,000 UNIT in 0.45% NACL 1 500ML.BAG IV SCH (19:56)
[2017-07-06] MEDS: SODIUM CHLORIDE 0.9% 1,000 ML IV SCH (19:57)
[2017-07-06] MEDS: ATORVASTATIN 80 MG TAB PO SCH (20:07)
--- NOTE | 2017-07-06 22:17 | PN ---
PROGRESS NOTE DATE OF SERVICE: 07/06/2017 PRESENTING COMPLAINT: Short of breath. INTERVAL HISTORY: This patient with known coronary artery disease presented with unstable angina/acute coronary syndrome. He was taken to the cardiac biology laboratory assistant today and intervention was carried out. Patient is free of chest pain. No shortness of breath. I do not have the official intervention note, but the patient did tolerate his supper. REVIEW OF SYSTEMS: Done for constitutional, cardiovascular, GI, pulmonary; relevant findings as above. CURRENT MEDICATIONS: Current medications are reviewed that include IV heparin. PHYSICAL EXAMINATION: Temperature 97.5, pulse 58, respiration 18, blood pressure 137/82, pulse ox 97% on room air. GENERAL APPEARANCE: Lying in bed. Comfortable. EYES: Pupils equal. Conjunctivae normal. HEENT: External appearance of nose and ears normal. Oral cavity normal. NECK: JVD not raised. Mass not palpable. RESPIRATORY: Effort increased. LUNGS: Decreased breath sounds. CARDIOVASCULAR: First and second sounds normal. No edema. ABDOMEN: Soft, nontender. Liver and spleen not palpable. PSYCHIATRY: Alert and oriented x3. Mood and affect normal. INVESTIGATIONS: Troponin x3 negative. LDL 50. ASSESSMENT: 1. Acute coronary syndrome, now with coronary intervention with stent. I do not have the formal report. 2. Coronary artery disease with prior stent to the right coronary artery and PLV in February of 2017. 3. Anxiety not otherwise specified. 4. Gastroesophageal reflux disease. 5. Essential hypertension. 6. Hyperlipidemia. 7. Herniated disc at C6 to C8, pending surgery as an outpatient. 8. Obesity; body mass index of 36.6. 9. IV heparin monitoring. PLAN: Continue current medication and treatment plan. Care was discussed with the patient. Follow with Cardiology. MMODL / IJN: [id number] /
[2017-07-07] MEDS: HYDROcodone/APAP 7.5-325MG 1 EACH TAB PO PRN ×2 (03:29→08:32)
[2017-07-07] MEDS: PANTOPRAZOLE 40 MG TABLET PO SCH (06:41)
[2017-07-07] MEDS: ASPIRIN 81 MG PO SCH (08:28)
[2017-07-07] MEDS: SERTRALINE 100 MG TAB PO SCH (08:28)
[2017-07-07] MEDS: ISOSORBIDE MONONITRATE ER 60 MG TAB.ER.24H PO SCH (08:28)
[2017-07-07] MEDS: TICAGRELOR 90 MG TAB PO SCH (08:28)
[2017-07-07] MEDS: METOPROLOL TARTRATE 25 MG TAB PO SCH (08:28)
[2017-07-07] MEDS: LISINOPRIL 20 MG TAB PO SCH (08:28)
[2017-07-07] MEDS: buPROPion XL 150 MG TAB.ER.24H PO SCH (08:28)
[2017-07-07 08:36] VITALS: RESP 16; TEMP 96.9
--- NOTE | 2017-07-07 10:46 | P.PN ---
Subjective Progress Note Date: 07/07/17 Principal diagnosis: Chest pain This is a 62-year-old gentleman with history of previous bypass surgery and also inferior wall myocardial infarction had stent placement to the RCA in February 2017. Patient had total occlusion of the RCA which was being collateralized from left system. The BENOIT Was patent at the time with total occlusion of the vein graft to the diagonal and also vein graft to the circumflex. Circumflex coronary artery has diffuse disease with ostial stenosis of the OM branch. The diagonal branch of the LAD also had moderate disease. Patient came to the office with complaints of increasing shortness of breath with mild exertional activities and chest tightness. His EKG showed T- wave inversions in anterior leads. Patient was advised to have cardiac catheterization which was performed yesterday by Dr. Lockhart. Subsequent to that patient underwent angioplasty and stenting of the diagonal branch. He was seen and examined this morning, denied any chest discomfort, no difficulty in breathing. EKG shows normal sinus rhythm with no changes from post-PCI. Creatinine this morning 0.8. Objective - Vital Signs Vital signs: Vital Signs Temp 96.9 F L 07/07/17 08:00 Pulse 61 07/07/17 08:00 Resp 16 07/07/17 08:00 BP 147/82 07/07/17 08:00 Pulse Ox 98 07/07/17 08:00 Intake & Output 07/06/17 07/07/17 07/07/17 18:59 06:59 18:59 Intake Total 645 200 240 Output Total 350 Balance 295 200 240 Weight 112.4 kg 117.4 kg Intake: IV 405 200 Sodium Chloride 0.9% 1, 0 200 000 ml @ 100 mls/hr IV . Q10H [facility] Rx#:[id number] Oral 240 240 Output: Urine 350 Other: Voiding Method Toilet # Voids 1 # Bowel Movements 1 - Exam PHYSICAL EXAMINATION: HEENT: Head is atraumatic, normocephalic. Pupils equal, round. Neck is supple. There is no elevated jugular venous pressure. HEART EXAMINATION: Heart S1, S2 normal. No murmur or gallop heard. CHEST EXAMINATION: Lungs are clear to auscultation and precussion. No chest wall tenderness is noted on palpation or with deep breathing. ABDOMEN: Soft, nontender. Bowel sounds are heard. No organomegaly noted. Right groin soft, no evidence of any hematoma. EXTREMITIES: 2+ peripheral pulses with no evidence of peripheral edema and no calf tenderness noted. NEUROLOGIC patient is awake, alert and oriented -3. . - Labs CBC & Chem 7: 07/05/17 17:39 07/07/17 05:35 Assessment and Plan Plan: Assessment and plan #1 status post angioplasty with stenting of the diagonal branch. #2 hypertension #3 hyperlipidemia #4 known history of coronary artery disease with prior bypass surgery and stent placement Plan Patient may be old be discharged home today from cardiology's perspective. He will be discharged home on aspirin 81 mg daily, Lipitor 80 mg daily, Imdur 60 mg daily, lisinopril 20 mg daily, metoprolol 25 mg one tablet by mouth twice a day, Brilinta 90 mg by mouth twice a day and sublingual nitroglycerin as needed for chest pain. Follow-up appointment has been made with Dr. Lockhart in the office in one week. DNP note has been reviewed, I agree with a documented findings and plan of care. Patient was seen and examined.
[2017-07-07 11:28] VITALS: BMI 38.2
[2017-07-07 13:37] VITALS: BP 124/76; PULSE 68
--- NOTE | 2017-07-07 23:47 | DS ---
DISCHARGE SUMMARY DATE OF ADMISSION: 07/05/2017 DATE OF DISCHARGE: 07/07/2017 FINAL DIAGNOSES: 1. Acute coronary syndrome. 2. Coronary artery disease with brass the stent to the right coronary artery and posterior left ventricular in February 2017. 3. Anxiety, not otherwise specified. 4. Gastroesophageal reflux disease. 5. Essential hypertension. 6. Hyperlipidemia. 7. Chronic herniated disc in pending surgery as an outpatient. 8. Obesity; BMI 36.6. 9. Procedure with a cardiac catheterization with angioplasty and stent of the [place] diagonal and [place] posterior descending artery. HOSPITAL COURSE: This patient presented with acute coronary syndrome with cardiac-sounding presentation, EKG changes. The patient underwent angioplasty and stenting to the diagonal branch. Today, up and about, no further cardiac symptoms. Pulmonary embolism was ruled out via chest CTA. 2D echo showed preserved LV function. Care was discussed with the patient and because of the stent. The patient's has neck surgery, which was due shortly, will have to be postponed for at least 6 months. This can be further determined by the laborer demolition when patient follows up. EXAMINATION: LUNGS: Slightly decreased breath sounds. CARDIOVASCULAR: First and second sounds normal. DISCHARGE MEDICATIONS: 1. Vasotec 10 mg a day. 2. Metoprolol 25 mg p.o. b.i.d. 3. Zoloft 100 mg p.o. daily. 4. Wellbutrin XL 150 mg p.o. daily. 5. Prilosec 20 mg p.o. with breakfast. 6. Aspirin 81 mg p.o. daily. 7. Lipitor 80 mg p.o. q.h.s. 8. Brilinta 90 mg p.o. b.i.d. 9. [place] 7.5 one tablet q.4h p.r.n. 10.Imdur ER 60 mg p.o. daily. 11.Nitrostat 0.4 sublingual q.5 p.r.n. I did discuss with the patient's that the patient should not be taking any more NSAIDs. Cardiac activity to be limited as per instructions per Cardiology. Did discuss at length about the risk of having a surgery with a new stent, that it has a chance of getting blocked off. The patient was somewhat casual about this in the beginning, then did seem to understand the gravity of the issue. It was helpful being involved in the discussion of the same. FOLLOWUP: With Dr. Jamel Larios on 07/13/2017. Follow up with Dr. Lockhart on 07/12/2017. The patient may continue to take his [place] and heating pad for his pain control. DISCUSSION AND DISCHARGE PLANNING: More than 35 minutes. MMODL / IJN: [id number] /
== END 2017-07-07 14:27 | disposition home or self-care (01) ==
LOC: EC 16:49 → 3OBS 18:16 → 6SEL 07-06 10:59
PROVIDERS: ADMIT Hospitalist; ATTEND Hospitalist
DX: I24.9 Acute ischemic heart disease, unspecified (principal); I25.110 Atherosclerotic heart disease of native coronary artery with unstable angina pectoris; I25.710 Atherosclerosis of autologous vein coronary artery bypass graft(s) with unstable angina pectoris; I25.82 Chronic total occlusion of coronary artery; I10 Essential (primary) hypertension; K21.9 Gastro-esophageal reflux disease without esophagitis; F41.9 Anxiety disorder, unspecified; E78.5 Hyperlipidemia, unspecified; M50.223 Other cervical disc displacement at C6-C7 level; E66.9 Obesity, unspecified; Z68.36 Body mass index [BMI] 36.0-36.9, adult; I25.2 Old myocardial infarction; Z79.82 Long term (current) use of aspirin; Z79.02 Long term (current) use of antithrombotics/antiplatelets; Z79.899 Other long term (current) drug therapy; Z87.01 Personal history of pneumonia (recurrent); Z95.1 Presence of aortocoronary bypass graft; Z95.5 Presence of coronary angioplasty implant and graft; Z87.891 Personal history of nicotine dependence; Z82.49 Family history of ischemic heart disease and other diseases of the circulatory system
CPT/HCPCS: 99152; 99153; 99285 ×2; 96365 ×2; 96366 ×14; 96375 ×2; 96376 ×2; 36415; 93005; 93306; 93455; 85379; 83880; 80061; 80053; 82565; 82550 ×2; 82553 ×2; 83735; 84484 ×2; 85025; 85610; 85730 ×2; 71046; 71275; G0378 ×3; C9600; C1769 ×4; C1887 ×2; C1725 ×2; C1894; C1714; C1760; C1874; J2001; J2250; J2060 ×2; J1644 ×2; Q9967 ×2; J3010; J0583; Q9950

== ENCOUNTER 2017-07-10 11:10 | Inpatient (IN) | payer BC ==
[2017-07-10] MEDS ORDERED: ASPIRIN 81 MG PO STA (11:27)
[2017-07-10] MEDS ORDERED: NITROGLYCERIN OINT 1 INCH/GM PACKET TOPICAL STA (11:27)
--- NOTE | 2017-07-10 11:30 | ED ---
General Adult HPI - General Chief complaint: Chest Pain Stated complaint: CHEST PAIN Time Seen by Provider: 07/10/17 11:19 Source: patient, family, RN notes reviewed Mode of arrival: wheelchair Limitations: no limitations - History of Present Illness Initial comments: Patient is a pleasant [age]-year-old male presenting to the emergency Department with complaints of chest discomfort and dyspnea. Patient was discharged from the hospital last week. Patient has continued symptoms. Patient did have 1 stent placed. There was another area that they were unable to reach. Patient's main concern is exertional dyspnea. Patient also has some mild chest discomfort. Patient states symptoms are similar to his previous cardiac problems. Patient at times does have some sweating and nausea. Discomfort is mild at this time. - Related Data Home Medications Medication Instructions Recorded Confirmed Enalapril [Vasotec] 10 mg PO DAILY 02/28/17 07/10/17 Metoprolol Tartrate 25 mg PO BID 02/28/17 07/10/17 Sertraline HCl [Zoloft] 100 mg PO DAILY 02/28/17 07/10/17 buPROPion XL [Wellbutrin XL] 150 mg PO DAILY 02/28/17 07/10/17 Omeprazole [PriLOSEC] 20 mg PO AC-BRKFST 03/01/17 07/10/17 HYDROcodone/APAP 7.5-325MG [[place] 1 tab PO Q4-6H PRN 07/05/17 07/10/17 7.5-325] Isosorbide Mononitrate ER [Imdur] 60 mg PO DAILY 07/05/17 07/10/17 Previous Rx's Medication Instructions Recorded Aspirin 81 mg PO DAILY #30 chew 03/02/17 Atorvastatin [Lipitor] 80 mg PO HS #30 tab 03/02/17 Ticagrelor [Brilinta] 90 mg PO BID tab 03/02/17 Nitroglycerin Sl Tabs [Nitrostat] 0.4 mg SUBLINGUAL Q5M PRN #25 tab 07/07/17 Allergies Allergy/AdvReac Type Severity Reaction Status Date / Time No Known Allergies Allergy Verified 07/10/17 12:06 Review of Systems ROS Statement: Those systems with pertinent positive or pertinent negative responses have been documented in the HPI. ROS Other: All systems not noted in ROS Statement are negative. Constitutional: Denies: fever Eyes: Denies: eye pain ENT: Denies: ear pain Respiratory: Reports: dyspnea (Exertional). Denies: cough Cardiovascular: Reports: chest pain Endocrine: Reports: fatigue Gastrointestinal: Denies: abdominal pain Genitourinary: Denies: dysuria Musculoskeletal: Denies: back pain Skin: Denies: rash Neurological: Denies: weakness Past Medical History Past Medical History: Coronary Artery Disease (CAD), Myocardial Infarction ([place]) , Pneumonia Additional Past Medical History / Comment(s): See Chantelle's H&P,SOB, Pneumonia January Last Myocardial Infarction Date:: 2009 History of Any Multi-Drug Resistant Organisms: None Reported Past Surgical History: Appendectomy, Coronary Bypass/CABG, Heart Catheterization With Stent, Hernia Repair Additional Past Surgical History / Comment(s): CABG-at age 38-3 vessel,nishi inguinal hernia,umbilical hernia,lt shoulder surgery Past Anesthesia/Blood Transfusion Reactions: No Reported Reaction Date of Last Stent Placement:: 2009 Past Psychological History: No Psychological Hx Reported Smoking Status: Former smoker Past Alcohol Use History: Occasional Past Drug Use History: None Reported - Past Family History Mother Family Medical History: Coronary Artery Disease (CAD), Pulmonary Embolus Additional Family Medical History / Comment(s): CABG Father Family Medical History: Coronary Artery Disease (CAD) Additional Family Medical History / Comment(s): CABG, traumatic golf cart General Exam Limitations: no limitations General appearance: alert, in no apparent distress Head exam: Present: atraumatic Eye exam: Present: normal appearance, PERRL ENT exam: Present: normal oropharynx Neck exam: Present: normal inspection Respiratory exam: Present: normal lung sounds bilaterally. Absent: chest wall tenderness Cardiovascular Exam: Present: regular rate, normal rhythm Expanded Peripheral pulses: 2+: Radial (R), Radial (L), Dorsalis Pedis (R), Dorsalis Pedis (L) GI/Abdominal exam: Present: soft. Absent: tenderness Extremities exam: Present: normal inspection. Absent: pedal edema, calf tenderness Neurological exam: Present: alert Psychiatric exam: Present: normal affect, normal mood Skin exam: Present: normal color Course Vital Signs 07/10/17 07/10/17 11:12 12:57 Temperature 98.5 F Pulse Rate 62 55 L Respiratory 18 18 Rate Blood Pressure 130/83 109/81 O2 Sat by Pulse 96 98 Oximetry EKG Findings - EKG Comments: EKG Findings:: Sinus rhythm at 66. PVC is present. DC 168. QRS 96. QT 426. QTc 446. Left axis. Inferior Q waves. No acute ST change. Medical Decision Making - Medical Decision Making Patient reevaluated and resting comfortably in bed. Patient updated on results and plan. Doctor Handy was paged for admission for Dr. stanley, who covers for Dr. Tamez. - Lab Data Result diagrams: 07/10/17 11:24 07/10/17 11:24 Lab Results 07/10/17 07/10/17 07/10/17 Range/Units 11:24 11:24 11:24 WBC 8.4 (3.8-10.6) k/uL RBC 4.95 (4.30-5.90) m/uL Hgb 14.9 (13.0-17.5) gm/dL Hct 42.6 (39.0-53.0) % MCV 86.0 (80.0-100.0) fL MCH 30.1 (25.0-35.0) pg MCHC 35.0 (31.0-37.0) g/dL RDW 13.2 (11.5-15.5) % Plt Count 206 (150-450) k/uL Neutrophils % 59 % Lymphocytes % 28 % Monocytes % 7 % Eosinophils % 3 % Basophils % 1 % Neutrophils # 5.0 (1.3-7.7) k/uL Lymphocytes # 2.4 (1.0-4.8) k/uL Monocytes # 0.6 (0-1.0) k/uL Eosinophils # 0.2 (0-0.7) k/uL Basophils # 0.1 (0-0.2) k/uL PT (9.0-12.0) sec INR (<1.2) APTT (22.0-30.0) sec Sodium 139 (137-145) mmol/L Potassium 4.5 (3.5-5.1) mmol/L Chloride 100 (98-107) mmol/L Carbon Dioxide 29 (22-30) mmol/L Anion Gap 10 mmol/L BUN 12 (9-20) mg/dL Creatinine 0.93 (0.66-1.25) mg/dL Est GFR (CKD-EPI)AfAm >90 (>60 ml/min/1.73 sqM) Est GFR (CKD-EPI)NonAf 87 (>60 ml/min/1.73 sqM) Glucose 110 H (74-99) mg/dL Calcium 9.8 (8.4-10.2) mg/dL Magnesium 1.8 (1.6-2.3) mg/dL Total Bilirubin 1.1 (0.2-1.3) mg/dL AST 41 (17-59) U/L ALT 55 (21-72) U/L Alkaline Phosphatase 76 (38-126) U/L Total Creatine Kinase 61 (55-170) U/L CK-MB (CK-2) 0.8 (0.0-2.4) ng/mL CK-MB (CK-2) Rel Index 1.3 Troponin I 0.080 H* (0.000-0.034) ng/mL Total Protein 6.5 (6.3-8.2) g/dL Albumin 4.1 (3.5-5.0) g/dL 07/10/17 Range/Units 11:24 WBC (3.8-10.6) k/uL RBC (4.30-5.90) m/uL Hgb (13.0-17.5) gm/dL Hct (39.0-53.0) % MCV (80.0-100.0) fL MCH (25.0-35.0) pg MCHC (31.0-37.0) g/dL RDW (11.5-15.5) % Plt Count (150-450) k/uL Neutrophils % % Lymphocytes % % Monocytes % % Eosinophils % % Basophils % % Neutrophils # (1.3-7.7) k/uL Lymphocytes # (1.0-4.8) k/uL Monocytes # (0-1.0) k/uL Eosinophils # (0-0.7) k/uL Basophils # (0-0.2) k/uL PT 10.4 (9.0-12.0) sec INR 1.1 (<1.2) APTT 23.4 (22.0-30.0) sec Sodium (137-145) mmol/L Potassium (3.5-5.1) mmol/L Chloride (98-107) mmol/L Carbon Dioxide (22-30) mmol/L Anion Gap mmol/L BUN (9-20) mg/dL Creatinine (0.66-1.25) mg/dL Est GFR (CKD-EPI)AfAm (>60 ml/min/1.73 sqM) Est GFR (CKD-EPI)NonAf (>60 ml/min/1.73 sqM) Glucose (74-99) mg/dL Calcium (8.4-10.2) mg/dL Magnesium (1.6-2.3) mg/dL Total Bilirubin (0.2-1.3) mg/dL AST (17-59) U/L ALT (21-72) U/L Alkaline Phosphatase (38-126) U/L Total Creatine Kinase (55-170) U/L CK-MB (CK-2) (0.0-2.4) ng/mL CK-MB (CK-2) Rel Index Troponin I (0.000-0.034) ng/mL Total Protein (6.3-8.2) g/dL Albumin (3.5-5.0) g/dL - Radiology Data Radiology results: image reviewed (Chest x-ray shows postoperative changes, cardiomegaly.) Disposition Clinical Impression: Unstable angina pectoris Disposition: ADMITTED IP TO THIS HOSP Condition: Serious Referrals: Jamel aLrios MD [Primary Care Provider] - 1-2 days Decision Time: 13:09
[2017-07-10 11:43] LABS: Basophils # (A) 0.1 k/uL (0-0.2); Basophils % (A) 1 %; Eosinophils # (A) 0.2 k/uL (0-0.7); Eosinophils % (A) 3 %; HCT 42.6 % (39.0-53.0); HGB 14.9 gm/dL (13.0-17.5); Lymphocytes # (A) 2.4 k/uL (1.0-4.8); Lymphocytes % (A) 28 %; MCH 30.1 pg (25.0-35.0); Mean Platelet Volume 7.8; Monocytes # (A) 0.6 k/uL (0-1.0); Monocytes % (A) 7 %; Neutrophils % (A) 59 %; Platelet Count 206 k/uL (150-450); RBC 4.95 m/uL (4.30-5.90); RDW 13.2 % (11.5-15.5); WBC 8.4 k/uL (3.8-10.6)
[2017-07-10 11:51] LABS: ALT 55 U/L (21-72); AST 41 U/L (17-59); Albumin 4.1 g/dL (3.5-5.0); Alkaline Phosphatase 76 U/L (38-126); Anion Gap 10 mmol/L; Blood Urea Nitrogen 12 mg/dL (9-20); Calcium 9.8 mg/dL (8.4-10.2); Carbon Dioxide 29 mmol/L (22-30); Chloride 100 mmol/L (98-107); Glucose 110 mg/dL (74-99); Magnesium 1.8 mg/dL (1.6-2.3); Potassium 4.5 mmol/L (3.5-5.1); Sodium 139 mmol/L (137-145); Total Bilirubin 1.1 mg/dL (0.2-1.3); Total Protein 6.5 g/dL (6.3-8.2)
[2017-07-10 11:52] LABS: INR 1.1 (<1.2); Partial Thromboplastin Time 23.4 sec (22.0-30.0); Prothrombin Time 10.4 sec (9.0-12.0)
[2017-07-10 12:19] LABS: Creatine Kinase MB 0.8 ng/mL (0.0-2.4)
[2017-07-10 12:25] LABS: Troponin I 0.08 ng/mL (0.000-0.034)
--- NOTE | 2017-07-10 12:48 | XR ---
EXAMINATION TYPE: XR chest 2V DATE OF EXAM: 07/10/2017 HISTORY: Chest Pain. REFERENCE: Previous study dated 07/05/2017. FINDINGS: There has been a midline sternotomy. The heart is mildly enlarged. The lungs are clear. Ple ural space are clear. IMPRESSION: MILD CARDIOMEGALY.
[2017-07-10] MEDS ORDERED: HEPARIN SODIUM,PORCINE 5,000 UNIT/ML 1 ML VIAL IV ONE (13:09)
[2017-07-10] MEDS ORDERED: HEPARIN SODIUM,PORCINE 5,000 UNIT/ML 1 ML VIAL IV PRN (13:09)
[2017-07-10] MEDS ORDERED: NITROGLYCERIN SL TABS 0.4 MG TAB SUBLINGUAL PRN ×2 (13:09→15:36)
[2017-07-10] MEDS: HEPARIN SOD,PORK IN 0.45% NACL 25,000 UNIT in 0.45% NACL 1 500ML.BAG IV SCH (14:18)
--- NOTE | 2017-07-10 15:47 | P.HPIM ---
History of Present Illness Patient is a pleasant 62-year-old of gentleman came in with complaints of shortness of breath and diaphoresis. Patient presented with similar symptoms during his recent hospitalization underwent the stenting to RCA patient has multivessel disease the other significantly blocked coronary vasculature. Patient symptoms never went away after his discharge. Patient had coronary artery bypass grafting in the past with subsequent multiple stent placements in month of last is March. Patient was complaining of minimal chest pressure sensation patient denied any fever chills nausea vomiting cough denied any orthopnea PND doesn't have any current symptoms or signs of congestive heart failure, had normal ejection fraction. Minimally elevated troponin of 0.08 Review of Systems REVIEW OF SYSTEMS: CONSTITUTIONAL: No fever, no malaise, no fatigue. HEENT: No recent visual problems or hearing problems. Denied any sore throat. CARDIOVASCULAR: No orthopnea, PND, no palpitations, no syncope. PULMONARY: no cough, no hemoptysis. GASTROINTESTINAL: No diarrhea, no nausea, no vomiting, no abdominal pain. Normoactive bowel sounds. NEUROLOGICAL: No headaches, no weakness, no numbness. HEMATOLOGICAL: Denies any bleeding or petechiae. GENITOURINARY: Denies any burning micturition, frequency, or urgency. MUSCULOSKELETAL/RHEUMATOLOGICAL: Denies any joint pain, swelling, or any muscle pain. ENDOCRINE: Denies any polyuria or polydipsia. The rest of the 14-point review of systems is negative. Past Medical History Past Medical History: Coronary Artery Disease (CAD), Myocardial Infarction ([place]) , Pneumonia Additional Past Medical History / Comment(s): See Chantelle's H&P,SOB, Pneumonia January Last Myocardial Infarction Date:: 2009 History of Any Multi-Drug Resistant Organisms: None Reported Past Surgical History: Appendectomy, Coronary Bypass/CABG, Heart Catheterization With Stent, Hernia Repair Additional Past Surgical History / Comment(s): CABG-at age 38-3 vessel,nishi inguinal hernia,umbilical hernia,lt shoulder surgery Past Anesthesia/Blood Transfusion Reactions: No Reported Reaction Date of Last Stent Placement:: 2009 Past Psychological History: No Psychological Hx Reported Smoking Status: Former smoker Past Alcohol Use History: Occasional Past Drug Use History: None Reported - Past Family History Mother Family Medical History: Coronary Artery Disease (CAD), Pulmonary Embolus Additional Family Medical History / Comment(s): CABG Father Family Medical History: Coronary Artery Disease (CAD) Additional Family Medical History / Comment(s): CABG, traumatic golf cart Medications and Allergies Home Medications Medication Instructions Recorded Confirmed Type Enalapril [Vasotec] 10 mg PO DAILY 02/28/17 07/10/17 History Metoprolol Tartrate 25 mg PO BID 02/28/17 07/10/17 History Sertraline HCl [Zoloft] 100 mg PO DAILY 02/28/17 07/10/17 History buPROPion XL [Wellbutrin XL] 150 mg PO DAILY 02/28/17 07/10/17 History Omeprazole [PriLOSEC] 20 mg PO AC-BRKFST 03/01/17 07/10/17 History Aspirin 81 mg PO DAILY #30 chew 03/02/17 07/10/17 Rx Atorvastatin [Lipitor] 80 mg PO HS #30 tab 03/02/17 07/10/17 Rx Ticagrelor [Brilinta] 90 mg PO BID tab 03/02/17 07/10/17 Rx HYDROcodone/APAP 7.5-325MG [[place] 1 tab PO Q4-6H PRN 07/05/17 07/10/17 History 7.5-325] Isosorbide Mononitrate ER [Imdur] 60 mg PO DAILY 07/05/17 07/10/17 History Nitroglycerin Sl Tabs [Nitrostat] 0.4 mg SUBLINGUAL Q5M PRN #25 tab 07/07/17 Rx Allergies Allergy/AdvReac Type Severity Reaction Status Date / Time No Known Allergies Allergy Verified 07/10/17 12:06 Physical Exam Vitals: Vital Signs Temp Pulse Resp BP Pulse Ox 07/10/17 14:22 57 L 18 109/66 96 07/10/17 12:57 55 L 18 109/81 98 07/10/17 11:12 98.5 F 62 18 130/83 96 Intake and Output 07/10/17 07/10/17 07/10/17 06:59 14:59 22:59 Other: Weight 117.027 kg PHYSICAL EXAMINATION: GENERAL: The patient is alert and oriented x3, not in any acute distress. Well developed, well nourished. HEENT: Pupils are round and equally reacting to light. EOMI. No scleral icterus. No conjunctival pallor. Normocephalic, atraumatic. No pharyngeal erythema. No thyromegaly. CARDIOVASCULAR: S1 and S2 present. No murmurs, rubs, or gallops. PULMONARY: Chest is clear to auscultation, no wheezing or crackles. ABDOMEN: Soft, nontender, nondistended, normoactive bowel sounds. No palpable organomegaly. MUSCULOSKELETAL: No joint swelling or deformity. EXTREMITIES: No cyanosis, clubbing, or pedal edema. NEUROLOGICAL: Gross neurological examination did not reveal any focal deficits. SKIN: No rashes. Results CBC & Chem 7: 07/10/17 11:24 07/10/17 11:24 Labs: Abnormal Lab Results - Last 24 Hours (Table) 07/10/17 07/10/17 Range/Units 11:24 11:24 Glucose 110 H (74-99) mg/dL Troponin I 0.080 H* (0.000-0.034) ng/mL Assessment and Plan Plan: -Shortness of breath and diaphoresis, and generally equal length. Patient may have unstable angina even non-ST elevation microinfarction with the minimally elevated troponin and patient was started on IV heparin repeat troponins were obtained. Patient still has significant blockage and multiple coronary vessels from the his previous cardiac catheterization cardiology will be consulted again. Continue his dual antiplatelet therapy statin and beta wandy. -Severe coronary artery disease -Hyperlipidemia -Hypertension -Obesity: Patient will benefit from sleep study
[2017-07-10] MEDS: HYDROcodone/APAP 7.5-325MG 1 EACH TAB PO PRN ×2 (15:50→20:49)
[2017-07-10] MEDS: NITROGLYCERIN OINT 1 INCH/GM PACKET TOPICAL SCH (18:20)
[2017-07-10 18:38] LABS: Creatine Kinase MB 0.8 ng/mL (0.0-2.4)
[2017-07-10 18:41] LABS: Troponin I 0.08 ng/mL (0.000-0.034)
[2017-07-10] MEDS: TICAGRELOR 90 MG TAB PO SCH (20:49)
[2017-07-10] MEDS: ATORVASTATIN 80 MG TAB PO SCH (20:49)
[2017-07-11] MEDS: NITROGLYCERIN OINT 1 INCH/GM PACKET TOPICAL SCH ×6 (00:15→23:37)
[2017-07-11 00:51] LABS: Creatine Kinase MB 0.7 ng/mL (0.0-2.4)
[2017-07-11 00:53] LABS: Troponin I 0.069 ng/mL (0.000-0.034)
[2017-07-11] MEDS: HYDROcodone/APAP 7.5-325MG 1 EACH TAB PO PRN ×3 (04:23→15:54)
[2017-07-11] MEDS ORDERED: ASPIRIN 325 MG TAB PO STA (08:12)
[2017-07-11] MEDS ORDERED: SODIUM CHLORIDE 0.9% 1,000 ML in EMPTY BAG 1 BAG IV ONE (08:12)
[2017-07-11] MEDS ORDERED: ATORVASTATIN 80 MG TAB PO STA (08:12)
[2017-07-11] MEDS ORDERED: ALPRAZolam 0.25 MG TAB PO PRN (08:12)
[2017-07-11] MEDS ORDERED: NITROGLYCERIN SL TABS 0.4 MG TAB SUBLINGUAL PRN (08:12)
[2017-07-11] MEDS ORDERED: ALPRAZolam 0.5 MG TAB PO PRN (08:12)
[2017-07-11] MEDS: METOPROLOL TARTRATE 25 MG TAB PO SCH ×3 (08:17→19:59)
[2017-07-11 08:23] LABS: Mean Platelet Volume 7.8; Platelet Count 172 k/uL (150-450)
[2017-07-11] MEDS: PANTOPRAZOLE 40 MG TABLET PO SCH (08:56)
[2017-07-11] MEDS: buPROPion XL 150 MG TAB.ER.24H PO SCH (08:57)
[2017-07-11] MEDS: ISOSORBIDE MONONITRATE ER 60 MG TAB.ER.24H PO SCH (08:57)
[2017-07-11] MEDS: LISINOPRIL 20 MG TAB PO SCH (08:57)
[2017-07-11] MEDS: SERTRALINE 100 MG TAB PO SCH (08:58)
[2017-07-11] MEDS ORDERED: ASPIRIN 325 MG TAB PO SCH (09:00)
[2017-07-11] MEDS ORDERED: ASPIRIN 81 MG PO SCH (09:00)
[2017-07-11] MEDS: HEPARIN SOD,PORK IN 0.45% NACL 25,000 UNIT in 0.45% NACL 1 500ML.BAG IV SCH (09:04)
[2017-07-11 09:34] LABS: Cholesterol 115 mg/dL (<200); HDL Cholesterol 41 mg/dL (40-60); LDL Cholesterol,Calculated 53 mg/dL (0-99); Triglycerides 106 mg/dL (<150)
--- NOTE | 2017-07-11 10:13 | CONS ---
CONSULTATION DATE OF SERVICE: 07/11/2017. HISTORY: Lucho is a 62-year-old gentleman with history of coronary artery disease, status post CABG, status post multivessel angioplasty, who in fact had angioplasty of [place] diagonal branch on the 13th of this month. He comes back in complaining of shortness of breath 80s. This is very similar to the symptoms that he had prior to his previous angioplasties. He describes it as moderate to severe exertional shortness of breath that is resolved with rest. His EKG shows sinus rhythm with T-wave inversions in the anterior leads, which were noted on the previous admissions. His recent cardiac catheterization last week revealed a 40% distal left main stenosis, chronically occluded LAD, a 90% stenosis involving the OM, 90% stenosis involving chronically occluded PDA with patent BENOIT to LAD. Patient underwent angioplasty of the [place] diagonal branch but could not have the angioplasty of the PDA at that time. Since admission, the patient appears comfortable at rest. He is being treated with intravenous heparin. Troponins have come back elevated at 0.08, 0.08, and 0.06. These are high compared to the troponins at last admission. The patient's clinical presentation is consistent with acute non ST-segment elevation [place]. After reviewing the angiographic data and extensive discussions with Dr. Lockhart, the patient will undergo cardiac catheterization today with Dr. Bergman and then decide on further course of action. PAST MEDICAL HISTORY: Significant for coronary artery disease status post CABG, hypertension, dyslipidemia. CURRENT MEDICATIONS: 1. Brilinta 90 b.i.d. 2. Wellbutrin. 3. Zoloft. 4. Prilosec. 5. Metoprolol 25 b.i.d. 6. Imdur 60 daily. 7. [place]. 8. Vasotec 10 daily. 9. Lipitor 80 daily. 10.Aspirin. ALLERGIES: There are no known drug allergies. FAMILY HISTORY: Negative for premature coronary artery disease. SOCIAL HISTORY: Negative for current smoking, EtOH abuse or drug abuse. REVIEW OF SYSTEMS: HEENT is unremarkable. CARDIOVASCULAR: As described. RESPIRATORY: As described above. GI: Negative. : Negative. SKIN: Unremarkable. MUSCULOSKELETAL: Negative. ENDOCRINE: Negative. CONSTITUTIONAL: Negative. ONCOLOGIC: Negative. The rest of the system review is not relevant. PHYSICAL EXAM: Patient is comfortable at rest. Vital signs are stable. There is no jugular venous distention. Carotid upstroke is normal. There is no bruit. Chest exam reveals good air entry bilaterally. Heart exam reveals first and second heart sounds. No gallop. No murmur. No rub. Abdomen is soft, nontender. Examination of extremities did not reveal edema. Peripheral pulses are felt. LABS: Hemoglobin of 14.9, platelet count is 206. Creatinine is 0.9. Three sets of troponins are elevated. ASSESSMENT: 1. Acute non ST-segment elevation myocardial infarction. 2. Coronary artery disease, status post coronary artery bypass grafting. 3. Status post multivessel angioplasty. 4. Hypertension. 5. Dyslipidemia. PLAN: Patient will undergo cardiac catheterization today. Has been explained the risks, benefits and alternatives, understood and accepted. MMODL / IJN: [id number] /
[2017-07-11] MEDS: TICAGRELOR 90 MG TAB PO SCH ×2 (10:18→19:59)
[2017-07-11] MEDS ORDERED: LIDOCAINE 2% INJ 20 MG/ML (20 ML MDV) ONE (13:10)
[2017-07-11] MEDS ORDERED: MIDAZOLAM 2 MG/2 ML VIAL ONE (13:10)
[2017-07-11] MEDS ORDERED: IV FLUID CONTINUATION 1,000 ML IV ONE (13:11)
[2017-07-11] MEDS: MIDAZOLAM 2 MG/2 ML VIAL IV ONE ×2 (13:15→13:59)
[2017-07-11] MEDS ORDERED: LIDOCAINE 2% INJ 20 MG/ML SQ ONE ×2 (13:18)
--- NOTE | 2017-07-11 13:31 | P.PN ---
Subjective Patient came in with complaints of of breath, anginal equal and, Is going for cardiac catheterization today patient still has on and off shortness of breath. Patient denies any fever chills. Constitutional: Denied any fatigue denied any fever. Cardio vascular: denied any chest pain, palpitations Gastrointestinal denied any nausea vomiting Pulmonary: As mentioned in HPI Neurologic denied any new focal deficits Objective - Vital Signs Vital signs: Vital Signs Temp 96.5 F L 07/11/17 04:00 Pulse 56 L 07/11/17 04:00 Resp 18 07/11/17 04:00 BP 108/57 07/11/17 04:00 Pulse Ox 95 07/11/17 04:00 Intake & Output 07/10/17 07/11/17 07/11/17 18:59 06:59 18:59 Intake Total 334.915 389.047 Output Total 1000 Balance 334.915 -610.953 Weight 116.8 kg 117.5 kg Intake: Intake, IV Titration 84.915 389.047 Amount Heparin Sod,Pork in 0.45% 84.915 389.047 NaCl 25,000 unit In 0.45 % NaCl 1 500ml.bag @ 8.54 UNITS/KG/HR 19.98 mls/hr IV .Q24H NABEEL Rx#: [id number] Oral 250 Output: Urine 1000 Other: # Voids 1 - Exam PHYSICAL EXAMINATION: GENERAL: The patient is alert and oriented x3, not in any acute distress. Well developed, well nourished. HEENT: Pupils are round and equally reacting to light. EOMI. No scleral icterus. No conjunctival pallor. Normocephalic, atraumatic. No pharyngeal erythema. No thyromegaly. CARDIOVASCULAR: S1 and S2 present. No murmurs, rubs, or gallops. PULMONARY: Chest is clear to auscultation, no wheezing or crackles. ABDOMEN: Soft, nontender, nondistended, normoactive bowel sounds. No palpable organomegaly. MUSCULOSKELETAL: No joint swelling or deformity. EXTREMITIES: No cyanosis, clubbing, or pedal edema. NEUROLOGICAL: Gross neurological examination did not reveal any focal deficits. SKIN: No rashes. - Labs CBC & Chem 7: 07/11/17 07:55 07/10/17 11:24 Labs: Abnormal Lab Results - Last 24 Hours (Table) 07/10/17 07/10/17 07/10/17 Range/Units 11:24 17:32 17:32 APTT 37.8 H (22.0-30.0) sec Total Creatine Kinase 54 L (55-170) U/L Troponin I 0.080 H* 0.080 H* (0.000-0.034) ng/mL 07/11/17 07/11/17 07/11/17 Range/Units 00:03 00:03 07:55 APTT 58.6 H 49.5 H (22.0-30.0) sec Total Creatine Kinase 48 L (55-170) U/L Troponin I 0.069 H* (0.000-0.034) ng/mL Assessment and Plan Plan: -Shortness of breath and diaphoresis, anginal equivalant. Patient may have unstable angina even non-ST elevation microinfarction with the minimally elevated troponin, patient the will undergo cardiac catheterization today. Patient still has significant blockage and multiple coronary vessels from the his previous cardiac catheterization cardiology will be consulted again. Continue his dual antiplatelet therapy statin and beta wandy. -Severe coronary artery disease -Hyperlipidemia -Hypertension -Obesity: Patient will benefit from sleep study
[2017-07-11] MEDS ORDERED: BIVALIRUDIN 250 MG in SODIUM CHLORIDE 0.9% 50 ML IV ONE (13:48)
[2017-07-11] MEDS ORDERED: BIVALIRUDIN BOLUS 250 MG/50 ML IV ONE (13:48)
[2017-07-11] MEDS ORDERED: RX INFO: IV CONTRAST WAS GIVEN 1 EACH MISC MISCELLANE PRN (14:14)
[2017-07-11] MEDS ORDERED: ATROPINE SULFATE 0.1 MG/ML 10ML SYRINGE IV PRN (14:14)
[2017-07-11] MEDS ORDERED: MAG HYDROX/AL HYDROX/SIMETH 30 ML CUP PO PRN (14:14)
[2017-07-11] MEDS ORDERED: IOHEXOL 350 MG/ML 125ML BOTTLE INJ ONE (14:17)
[2017-07-11] MEDS ORDERED: TICAGRELOR 90 MG TAB ONE (14:25)
[2017-07-11] MEDS ORDERED: TICAGRELOR 90 MG TAB PO ONE (14:25)
[2017-07-11] MEDS: SODIUM CHLORIDE 0.9% 1,000 ML IV SCH (16:35)
--- NOTE | 2017-07-11 18:10 | CC ---
CARDIAC CATHETERIZATION REPORT DATE OF SERVICE: 07/11/2017 PERFORMING PHYSICIAN: Steve Bergman MD, contract administration coordinator. PROCEDURES PERFORMED: 1. Selective left and right coronary angiogram. 2. Left internal mammary artery angiogram. 3. Successful stenting of protected left main and proximal left anterior descending coronary artery using a 3.5 x 16 mm Promus Premier drug-eluting stent with good angiographic results. INDICATION: This is a pleasant 62-year-old gentleman who sees Dr. Lockhart in the office as an outpatient. He underwent a heart catheterization last week for unstable angina. At that point the heart catheterization revealed distal left main disease about 50%, occluded LAD in the proximal portion, protected by a BENOIT, mild to moderate disease in the left circumflex, and severe disease involving the PDA branch of the RCA. At that point also the patient was found to have severe disease involving the diagonal branch, which was a large diagonal. He underwent an atherectomy and balloon angioplasty and stenting of the diagonal with good angiographic results and without any complication. He was discharged home in stable medical condition and presented back to the hospital complaining of chest discomfort and shortness of breath. Because of that, heart catheterization was recommended. APPROACH: Left common femoral artery. COMPLICATIONS: None. LEVEL OF SEDATION: Moderate, with sedation length of 51 minutes. PROCEDURE DESCRIPTION: After obtaining informed consent, the patient was brought to the cardiac quality assurance lab technician. The left common femoral artery was cannulated using micropuncture technique. The micropuncture wire passed easily. Then I placed a 6-[place] sheath in the left common femoral artery. After that I did selective left and right coronary angiogram using 6- [place], JL4 and JR4 catheters. After that I did intravascular ultrasound (IVUS) of the left main. Please see separate paragraph for that. Subsequently I did intervene on the left main. Also, please see separate paragraph for that. The left internal mammary artery angiogram was performed using the JR4 catheter. The procedure was completed without any complication. SELECTIVE CORONARY ANGIOGRAM: 1. The left main is a large-caliber vessel with distal disease about 50% to 60%. Intravascular ultrasound revealed minimal luminal area of about 3.5 mm2. The left main bifurcates into the circumflex and left anterior descending artery. 2. The left circumflex is a large-caliber vessel and it is a nondominant vessel. The proximal circumflex has mild disease only and gives rise to the first OM branch, which has an ostial disease about 80%. The mid left circumflex appeared to have mild disease only and gives rise to a second OM branch, which appeared to have mild disease only. The left circumflex continues after that as a small- to medium- caliber vessel in the AV groove. 3. The left anterior descending artery is occluded by the ostium. The LAD is fed by the BENOIT. The LAD gives rise to a large diagonal branch which has a stent in the proximal portion; the stent is patent. 4. The RCA is a large caliber-vessel. It is a dominant vessel. The proximal RCA appeared to be stented with mild to moderate in-stent restenosis. The mid RCA appeared to have mild disease only. The RCA distally appeared to have mild disease only and bifurcates into PDA and PLV branches. The PDA branch appeared to be diseased in the range of 80% to 90% and the PLV branch appeared to have mild to moderate disease only. 5. Angiogram of coronary bypasses: The BENOIT to LAD is patent. INTRAVASCULAR ULTRASOUND (IVUS) OF THE LEFT MAIN AND PCI OF THE LEFT MAIN: Anticoagulation was initiated using Angiomax. Subsequently I took JL4 with a short tip and the left main was engaged. A Whisper wire was used to wire the left main and the wire was advanced to the proximal diagonal. After that I did intravascular ultrasound and I did manual pullback, and the minimal luminal area of the distal left main came in to be around 3.5 mm2, which is tight. At that point I decided to stent the left main. I did balloon angioplasty of the left main using a 3.0 balloon and subsequently I deployed a 3.5 x 16 mm Promus Premier drug- eluting stent where the stent was positioned under fluoroscopy guidance and deployed under 11 atmospheres for 20 seconds with the following angiogram showing good angiographic results. The procedure was completed without any complication. CONCLUSION: 1. Intermediate to severe disease involving the distal left main with intravascular ultrasound showing severe distal left main disease. 2. Mild to moderate disease involving the left circumflex. 3. Occluded left anterior descending coronary artery in the proximal portion and left anterior descending coronary artery fills by the left internal mammary artery or protected by the left internal mammary artery. 4. Patent stent in the first diagonal branch of the left anterior descending coronary artery, which is a large diagonal branch. 5. Severe disease involving the PDA branch of the right coronary artery. 6. Successful stenting of the left main as described above. POST-PROCEDURE MANAGEMENT: 1. Maximize medical treatment. 2. Follow up with the patient. GALILEO / ALEJANDRO: [id number] /
[2017-07-11] MEDS ORDERED: LORazepam 2 MG/ML INJ IV STA (19:27)
[2017-07-11] MEDS: ATORVASTATIN 80 MG TAB PO SCH (19:59)
[2017-07-12] MEDS: SODIUM CHLORIDE 0.9% 1,000 ML IV SCH (00:43)
[2017-07-12] MEDS: HYDROcodone/APAP 7.5-325MG 1 EACH TAB PO PRN ×2 (03:26→08:19)
[2017-07-12] MEDS: NITROGLYCERIN OINT 1 INCH/GM PACKET TOPICAL SCH ×2 (05:39→12:24)
[2017-07-12] MEDS: PANTOPRAZOLE 40 MG TABLET PO SCH (06:15)
[2017-07-12 06:28] LABS: Basophils # (A) 0.1 k/uL (0-0.2); Basophils % (A) 1 %; Eosinophils # (A) 0.2 k/uL (0-0.7); Eosinophils % (A) 3 %; HCT 35.9 % (39.0-53.0); HGB 12.9 gm/dL (13.0-17.5); Hyperchromasia Slight; Lymphocytes # (A) 1.6 k/uL (1.0-4.8); Lymphocytes % (A) 25 %; MCH 30.8 pg (25.0-35.0); MCV 85.6 fL (80.0-100.0); Mean Platelet Volume 7.5; Monocytes # (A) 0.5 k/uL (0-1.0); Monocytes % (A) 8 %; Neutrophils # (A) 3.8 k/uL (1.3-7.7); Neutrophils % (A) 61 %; Platelet Count 173 k/uL (150-450); RDW 13.2 % (11.5-15.5); WBC 6.2 k/uL (3.8-10.6)
[2017-07-12 06:35] LABS: Anion Gap 6 mmol/L; Blood Urea Nitrogen 13 mg/dL (9-20); Carbon Dioxide 26 mmol/L (22-30); Chloride 106 mmol/L (98-107); Glucose 94 mg/dL (74-99); Potassium 4.5 mmol/L (3.5-5.1); Sodium 138 mmol/L (137-145)
[2017-07-12] MEDS: METOPROLOL TARTRATE 25 MG TAB PO SCH (08:18)
[2017-07-12] MEDS: SERTRALINE 100 MG TAB PO SCH (08:18)
[2017-07-12] MEDS: LISINOPRIL 20 MG TAB PO SCH (08:18)
[2017-07-12] MEDS: ISOSORBIDE MONONITRATE ER 60 MG TAB.ER.24H PO SCH (08:18)
[2017-07-12] MEDS: buPROPion XL 150 MG TAB.ER.24H PO SCH (08:18)
[2017-07-12] MEDS: TICAGRELOR 90 MG TAB PO SCH (08:19)
[2017-07-12 08:28] VITALS: TEMP 96.9
[2017-07-12] MEDS ORDERED: ASPIRIN 81 MG PO SCH (09:00)
[2017-07-12 10:46] VITALS: BMI 38.6
[2017-07-12 12:20] VITALS: BP 110/66; PULSE 87; RESP 18
[2017-07-12] MEDS: HEPARIN SOD,PORK IN 0.45% NACL 25,000 UNIT in 0.45% NACL 1 500ML.BAG IV SCH (12:24)
--- NOTE | 2017-07-12 12:29 | P.PN ---
Subjective Progress Note Date: 07/12/17 Principal diagnosis: Non-STEMI This is a 62-year-old gentleman with known history of coronary artery disease with prior bypass surgery as well as multivessel angioplasty, he presented to the hospital with a non-Q-wave myocardial infarction. Most recently patient was in the hospital last week, had a heart catheterization which revealed a 40% distal left main stenosis, chronically occluded LAD, 90% stenosis involving the OM, 90% stenosis involving chronically occluded PDA with a patent BENOIT to the LAD. He underwent angioplasty of the [place] diagonal branch but could not have the PDA done at that time. He was taken back to the cardiac catheterization lab yesterday by Dr. Cárdenas where the patient underwent successful stenting of the protected left main and proximal LAD. Patient was seen and examined this morning, he denies any chest pain, states he had some mild shortness of breath earlier but overall feeling significantly better. His EKG shows normal sinus rhythm with no changes from post-PCI. Blood pressure 110 /60 with a heart rate in the 80s. Temperature 96.9 is 98% on room air. White blood cell count 6.2, hemoglobin 12.9, platelet count 173. Sodium 138, potassium 4.5, BUN 13, creatinine 0.9. Objective - Vital Signs Vital signs: Vital Signs Temp 96.9 F L 07/12/17 11:35 Pulse 87 07/12/17 11:35 Resp 18 07/12/17 11:35 BP 110/66 07/12/17 11:35 Pulse Ox 98 07/12/17 11:35 Intake & Output 07/11/17 07/12/17 07/12/17 18:59 06:59 18:59 Intake Total 824.047 360 Output Total 1000 Balance -175.953 360 Weight 118.6 kg 118.6 kg Intake: IV 75 Intake, IV Titration 389.047 Amount Heparin Sod,Pork in 0.45% 389.047 NaCl 25,000 unit In 0.45 % NaCl 1 500ml.bag @ 8.54 UNITS/KG/HR 19.98 mls/hr IV .Q24H [facility] Rx#: [id number] Oral 360 360 Output: Urine 1000 Other: Voiding Method Urinal # Voids 1 2 - Exam PHYSICAL EXAMINATION: HEENT: Head is atraumatic, normocephalic. Pupils equal, round. Neck is supple. There is no elevated jugular venous pressure. HEART EXAMINATION: Heart S1, S2 normal. No murmur or gallop heard. CHEST EXAMINATION: Lungs are clear to auscultation and precussion. No chest wall tenderness is noted on palpation or with deep breathing. ABDOMEN: Soft, nontender. Bowel sounds are heard. No organomegaly noted. Left groin soft, no hematoma, good distal pulse. EXTREMITIES: 2+ peripheral pulses with no evidence of peripheral edema and no calf tenderness noted. NEUROLOGIC patient is awake, alert and oriented -3. . - Labs CBC & Chem 7: 07/12/17 06:00 07/12/17 06:00 Labs: Abnormal Lab Results - Last 24 Hours (Table) 07/12/17 Range/Units 06:00 RBC 4.20 L (4.30-5.90) m/uL Hgb 12.9 L (13.0-17.5) gm/dL Hct 35.9 L (39.0-53.0) % Assessment and Plan Plan: Assessment and plan #1 non-ST elevation myocardial infarction status post stenting of the left main and proximal LAD. #2 known history of coronary artery disease with prior bypass surgery and multivessel stenting, most recently one week ago patient underwent stenting of the diagonal branch. He has a known blockage of the PDA,. #3 hypertension #4 hyperlipidemia Plan From cardiology's perspective, patient may be able to be discharged home today. We will make him a follow-up appointment to see Dr. Lockhart in the office post discharge. Patient will be discharged home on aspirin 81 mg daily, Lipitor 80 mg daily, lisinopril 20 mg daily, Imdur 60 mg daily, metoprolol 25 mg one tablet by mouth twice a day, Brilinta 90 mg daily, and sublingual nitroglycerin as needed for chest pain. DNP note has been reviewed, I agree with a documented findings and plan of care. Patient was seen and examined.
--- NOTE | 2017-07-12 13:05 | P.DS ---
Providers Date of admission: 07/10/17 13:12 Attending physician: Anthony Pool Consults: 07/10/17 13:10 Consult Physician Urgent Consulting Provider: Javi Lockhart Consult Reason/Comments: ua Do you want consulting provider notified?: Yes 07/11/17 14:14 Consult Physician Routine Consulting Provider: [facility] Consult Reason/Comments: Post Interventional patient Do you want consulting provider notified?: Already Contacted Primary care physician: [facility] Course: Patient came in with complaints of of breath, anginal Is going for cardiac catheterization today patient still has on and off shortness of breath. Patient denies any fever chills. Patient underwent cardiac catheterization and stenting of LAD. Patient had multiple stents in the past along with a CABG in the past. PHYSICAL EXAMINATION: GENERAL: The patient is alert and oriented x3, not in any acute distress. Well developed, well nourished. HEENT: Pupils are round and equally reacting to light. EOMI. No scleral icterus. No conjunctival pallor. Normocephalic, atraumatic. No pharyngeal erythema. No thyromegaly. CARDIOVASCULAR: S1 and S2 present. No murmurs, rubs, or gallops. PULMONARY: Chest is clear to auscultation, no wheezing or crackles. ABDOMEN: Soft, nontender, nondistended, normoactive bowel sounds. No palpable organomegaly. MUSCULOSKELETAL: No joint swelling or deformity. EXTREMITIES: No cyanosis, clubbing, or pedal edema. NEUROLOGICAL: Gross neurological examination did not reveal any focal deficits. SKIN: No rashes. Assessment and Plan Plan: -Shortness of breath and diaphoresis, anginal equivalant. Patient may have unstable angina even non-ST elevation microinfarction with the minimally elevated troponin, patient is status post cardiac catheterization and stenting of LAD patient had normal ejection fraction on ventriculogram -Severe coronary artery disease -Hyperlipidemia -Hypertension -Obesity: Patient will benefit from sleep study Patient Condition at Discharge: Serious Plan - Discharge Summary Discharge Rx Participant: Yes New Discharge Prescriptions: New Lisinopril [Zestril] 20 mg PO DAILY #30 tab Continue Metoprolol Tartrate 25 mg PO BID Aspirin 81 mg PO DAILY #30 chew Atorvastatin [Lipitor] 80 mg PO HS #30 tab Ticagrelor [Brilinta] 90 mg PO BID tab Isosorbide Mononitrate ER [Imdur] 60 mg PO DAILY Nitroglycerin Sl Tabs [Nitrostat] 0.4 mg SUBLINGUAL Q5M PRN #25 tab PRN Reason: Chest Pain Discontinued Enalapril [Vasotec] 10 mg PO DAILY No Action buPROPion XL [Wellbutrin XL] 150 mg PO DAILY Sertraline HCl [Zoloft] 100 mg PO DAILY Omeprazole [PriLOSEC] 20 mg PO AC-BRKFST HYDROcodone/APAP 7.5-325MG [[place] 7.5-325] 1 tab PO Q4-6H PRN PRN Reason: Pain Discharge Medication List Metoprolol Tartrate 25 mg PO BID 02/28/17 [History] Sertraline HCl [Zoloft] 100 mg PO DAILY 02/28/17 [History] buPROPion XL [Wellbutrin XL] 150 mg PO DAILY 02/28/17 [History] Omeprazole [PriLOSEC] 20 mg PO AC-BRKFST 03/01/17 [History] Aspirin 81 mg PO DAILY #30 chew 03/02/17 [Rx] Atorvastatin [Lipitor] 80 mg PO HS #30 tab 03/02/17 [Rx] Ticagrelor [Brilinta] 90 mg PO BID tab 03/02/17 [Rx] HYDROcodone/APAP 7.5-325MG [[place] 7.5-325] 1 tab PO Q4-6H PRN 07/05/17 [History] Isosorbide Mononitrate ER [Imdur] 60 mg PO DAILY 07/05/17 [History] Lisinopril [Zestril] 20 mg PO DAILY #30 tab 07/12/17 [Rx] Nitroglycerin Sl Tabs [Nitrostat] 0.4 mg SUBLINGUAL Q5M PRN #25 tab 07/12/17 [Rx ] Follow up Appointment(s)/Referral(s): Jamel Larios MD [Primary Care Provider] - 3 Days Javi Lockhart MD [STAFF PHYSICIAN] - 07/14/17 2:30 pm ( Previously scheduled) Patient Instructions/Handouts: *Surgery [facility] - After Heart Catheterization - Analysis Or Research Safety Inspector Instructions, Left Heart Catheterization (DC) Discharge Disposition: HOME SELF-CARE
== END 2017-07-12 14:07 | disposition home or self-care (01) | DRG 247 ==
LOC: EC 11:10 → 6SEL 13:12
PROVIDERS: ADMIT Hospitalist; ATTEND Hospitalist
PROC: B2181ZZ Fluoroscopy of Left Internal Mammary Bypass Graft using Low Osmolar Contrast (ICD-10-PCS; 2017-07-11)
PROC: 027034Z Dilation of Coronary Artery, One Artery with Drug-eluting Intraluminal Device, Percutaneous Approach (ICD-10-PCS; principal; 2017-07-11 14:30)
PROC: B240ZZ3 Ultrasonography of Single Coronary Artery, Intravascular (ICD-10-PCS; 2017-07-11 14:30)
PROC: B2111ZZ Fluoroscopy of Multiple Coronary Arteries using Low Osmolar Contrast (ICD-10-PCS; 2017-07-11 14:30)
DX: I21.4 Non-ST elevation (NSTEMI) myocardial infarction (principal); T82.855A Stenosis of coronary artery stent, initial encounter; Z95.1 Presence of aortocoronary bypass graft; E66.9 Obesity, unspecified; E78.5 Hyperlipidemia, unspecified; I25.110 Atherosclerotic heart disease of native coronary artery with unstable angina pectoris; I10 Essential (primary) hypertension; Z68.38 Body mass index [BMI] 38.0-38.9, adult; Z95.5 Presence of coronary angioplasty implant and graft; I25.2 Old myocardial infarction; Z79.82 Long term (current) use of aspirin; Z79.02 Long term (current) use of antithrombotics/antiplatelets; Z79.899 Other long term (current) drug therapy; Z87.891 Personal history of nicotine dependence; Z87.01 Personal history of pneumonia (recurrent); Z82.49 Family history of ischemic heart disease and other diseases of the circulatory system; Y84.0 Cardiac catheterization as the cause of abnormal reaction of the patient, or of later complication, without mention of misadventure at the time of the procedure
CPT/HCPCS: 36415; 71046; 80048; 80053; 80061; 82550; 82553; 83735; 84484; 85025; 85049; 85610; 85730; 92978; 93005; 93455; 96365; 96366; 96376; 99285

== ENCOUNTER → 2018-11-03 | Outpatient (CLI) | payer OTHER ==
--- NOTE | 2018-11-03 08:01 | MR ---
EXAMINATION TYPE: MR cervical spine wo con DATE OF EXAM: 11/03/2018 COMPARISON: CT cervical spine 11/03/2018 HISTORY: Spondylosis with radiculopathy, loss of mobility left hand post cervical fusion CONTRAST: Performed utilizing 0 mL intravenous Gadavist gadolinium contrast. TECHNIQUE: Multiplanar multiecho imaging on a 3.0 Bing magnet is performed through the cervical spin e. FINDINGS: The craniovertebral junction is normal. Vertebral body alignment is normal. Spinal cord maintains normal signal through its visualized course. There is an anterior cervical fusion which appears to include C5-T1. C7-T1: No focal disc herniation or significant disc bulge is evident. No spinal canal stenosis or n eural foraminal stenosis is present. C6-7: No focal disc herniation or significant disc bulge is evident. No spinal canal stenosis is evid ent. There is uncovertebral joint hypertrophy with moderate left and mild right foraminal narrowing.. C5-6: No focal disc herniation or significant disc bulge is evident. No spinal canal stenosis. There is uncovertebral joint hypertrophy with mild right foraminal narrowing. Foraminal narrowing appears greater on the CT examination at this level. C4-5: There is a small to moderate central protrusion with moderate anterior thecal sac compression. This has cord contact. Some cord deformity may be present. Spinal canal stenosis is not present measu ring 0.9 cm. The neural foramen are patent.. C3-4: There is a right paracentral disc bulge with moderate anterior thecal sac compression. This has cord contact without cord deformity. No spinal canal stenosis present. Uncovertebral joint hypertrop hy has moderate bilateral foraminal narrowing may be slightly greater on the right.. C2-3: No focal disc herniation or significant disc bulge is evident. No spinal canal stenosis or marva ral foraminal stenosis is present. IMPRESSIONS: 1. Uncovertebral joint hypertrophy as well as some facet hypertrophy contributing to foraminal cyst s tenosis. This appears greatest at C6-7 on the left with moderate narrowing. Comparison CT examination suggests a more severe bilateral foraminal stenosis C3-4. 2. Central disc protrusion C4-5 with moderate anterior thecal sac compression cord contact and some c ord deformity. No myelomalacia is identified at this time. 3. Right paracentral disc bulge with moderate anterior thecal sac compression and cord contact withou t cord deformity at C3-4.
--- NOTE | 2018-11-03 08:55 | CT ---
EXAMINATION TYPE: CT cervical spine wo con DATE OF EXAM: 11/03/2018 COMPARISON: Same day MRI cervical spine HISTORY: Loss of mobility left hand post cervical fusion per patient. Cervical spondylosis with radic ulopathy per order. CT DLP: 978 mGycm. Automated Exposure Control for Dose Reduction was Utilized. TECHNIQUE: CT scan of the cervical spine is obtained without contrast, axial images are obtained, sa gittal and coronal reformatted images are also reviewed. FINDINGS: Coronal images show dextroconvex scoliotic curvature centered in the upper thoracic spine. Osseous structures are demineralized. Cervical spine is visualized in its entirety from C1 through up per thoracic levels, without evidence of acute fracture or dislocation. Prevertebral soft tissue arturo ears within normal limits. The C1-C2 articulation is within normal limits on the coronal images. The re is anterior fusion plate with artificial disc material at C5-T1 levels. [id number] disc spac e narrowing C3-C4 level is present. 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 Review of axial images shows C2-C3 level to appear within normal limits. Axial images at C3-C4 level shows central disc protrusion effacing the anterior thecal sac with uncov ertebral facet degenerative changes causing moderate bilateral neural foraminal narrowing. Axial images at C4-C5 level show right sided uncovertebral facet degenerative changes with central di sc protrusion, bilateral neural foramina are patent. Axial images at C5-C6 and C6-C7 level show mild bilateral neural foraminal narrowing due to uncoverte bral facet spurring. Postsurgical changes seen. Spinal canal is preserved. Axial images at C7-T1 level shows surgical change but neural foramina are patent. The thyroid gland is felt within normal limits. Visualized lung apices are clear. IMPRESSION: Postsurgical change C5-T1 level with satisfactory alignment. Multilevel degenerative huong nges are seen most prominent at C3-C4 level as detailed above.
== END | disposition home or self-care (01) ==
LOC: RADMRIMAIN 06:47
PROVIDERS: ATTEND Neurological Surgery
DX: M48.02 Spinal stenosis, cervical region (principal); M50.11 Cervical disc disorder with radiculopathy, high cervical region; M47.22 Other spondylosis with radiculopathy, cervical region; M46.92 Unspecified inflammatory spondylopathy, cervical region; Z98.890 Other specified postprocedural states
CPT/HCPCS: 72125; 72141

== ENCOUNTER 2022-02-02 16:00 | Emergency (ER) | payer MEDICARE ==
[2022-02-02 16:13] VITALS: TEMP 98.1
[2022-02-02] MEDS ORDERED: MECLIZINE 12.5 MG TAB PO STA (16:33)
[2022-02-02] MEDS ORDERED: SODIUM CHLORIDE 0.9% 500 ML 500 ML IV STA (16:33)
[2022-02-02 16:49] LABS: Basophils # (A) 0.1 k/uL (0-0.2); Basophils % (A) 1 %; Eosinophils # (A) 0.2 k/uL (0-0.7); Eosinophils % (A) 2 %; HCT 44.3 % (39.0-53.0); HGB 15.7 gm/dL (13.0-17.5); Lymphocytes # (A) 3.1 k/uL (1.0-4.8); Lymphocytes % (A) 28 %; MCH 30.3 pg (25.0-35.0); MCHC 35.4 g/dL (31.0-37.0); MCV 85.5 fL (80.0-100.0); Mean Platelet Volume 9.7; Monocytes # (A) 0.5 k/uL (0-1.0); Monocytes % (A) 4 %; Neutrophils # (A) 7.2 k/uL (1.3-7.7); Neutrophils % (A) 64 %; Platelet Count 168 k/uL (150-450); RBC 5.18 m/uL (4.30-5.90); RDW 12.7 % (11.5-15.5); WBC 11.2 k/uL (3.8-10.6)
[2022-02-02 17:00] LABS: ALT 27 U/L (4-49); AST 32 U/L (17-59); African American GFR (CKD) >90 (>60 ml/min/1.73 sqM); Albumin 4.2 g/dL (3.5-5.0); Alkaline Phosphatase 103 U/L (38-126); Anion Gap 14 mmol/L; Blood Urea Nitrogen 17 mg/dL (9-20); Calcium 9.3 mg/dL (8.4-10.2); Carbon Dioxide 21 mmol/L (22-30); Chloride 105 mmol/L (98-107); Glucose 102 mg/dL (74-99); Non-African American GFR(CKD) >90 (>60 ml/min/1.73 sqM); Sodium 140 mmol/L (137-145); Total Bilirubin 0.8 mg/dL (0.2-1.3); Total Protein 6.5 g/dL (6.3-8.2)
[2022-02-02 17:01] LABS: Partial Thromboplastin Time 23.4 sec (22.0-30.0); Prothrombin Time 11.1 sec (9.0-12.0)
--- NOTE | 2022-02-02 17:56 | XR ---
EXAMINATION TYPE: XR chest 1V portable DATE OF EXAM: 02/02/2022 COMPARISON: 07/10/2017 HISTORY: Lightheaded TECHNIQUE: Single view FINDINGS: There is no heart failure nor confluent pneumonic infiltrate. There are sternal wires. Cost ophrenic angles are clear. There are no hilar masses. IMPRESSION: No active cardiac pulmonary disease. No change.
--- NOTE | 2022-02-02 18:17 | CT ---
EXAMINATION TYPE: CT brain wo con DATE OF EXAM: 02/02/2022 COMPARISON: None HISTORY: vertigo CT DLP: 1122.6 mGycm Automated exposure control for dose reduction was used. Images obtained of the brain without contrast. There is mild cerebral atrophy. There is no mass effect or midline shift. No sign of intracranial hem orrhage. Calvarium is intact. There is normal aeration of the mastoid sinuses. IMPRESSION: Negative CT scan of the brain. Mild atrophy appropriate for age.
--- NOTE | 2022-02-02 19:08 | ED ---
General Adult HPI - General Chief complaint: Dizziness Stated complaint: chest pain, dizziness Time Seen by Provider: 02/02/22 16:19 Source: patient, RN notes reviewed, old records reviewed Mode of arrival: wheelchair Limitations: no limitations - History of Present Illness Initial comments: Patient is a 66-year-old male with past medical history remarkable for prior myocardial infarctions, cardiac stents, hypertension, acid reflux who presents emergency Department with over 24 hours of room spinning sensation. No history of vertigo. States that when he stands up or moves in a certain direction, the room does labs around him. He has been ongoing since approximately 9:30 AM yesterday when he initially presented to feed his cat. Denies any nausea or vomiting. Denies any syncopal episodes. Denies chest pain today, however states he may have had it yesterday but is uncertain if it was related to anxiety or not. Lasted moments, was not persistent. Has had no chest pain today. No acute complaints right now except for room spinning. Denies headache. Denies blurry vision. Denies weakness or numbness. No history of strokes. Is not on blood thinners. No trauma. Denies shortness of breath. Denies any abdominal pain. No fevers or chills. Presents for further evaluation at this time. - Related Data Home Medications Medication Instructions Recorded Confirmed Omeprazole [PriLOSEC] 20 mg PO AC-BRKFST 03/01/17 07/10/17 Isosorbide Mononitrate ER [Imdur] 60 mg PO DAILY 07/05/17 07/10/17 Albuterol Sulfate [Proair Hfa] 1 - 2 puff INHALATION RT-Q6H PRN 02/02/22 02/02/22 Cider Vinegar [Apple Cider Vinegar] 600 mg PO DAILY 02/02/22 02/02/22 Ezetimibe [Zetia] 10 mg PO DAILY 02/02/22 02/02/22 Metoprolol Tartrate [Lopressor] 12.5 mg PO BID 02/02/22 02/02/22 Multivitamins, Thera [Multivitamin 1 tab PO DAILY 02/02/22 02/02/22 (formulary)] Sertraline [Zoloft] 150 mg PO DAILY 02/02/22 02/02/22 lisinopriL [Zestril] 20 mg PO DAILY 02/02/22 02/02/22 Previous Rx's Medication Instructions Recorded Aspirin 81 mg PO DAILY #30 chew 03/02/17 Atorvastatin [Lipitor] 80 mg PO HS #30 tab 03/02/17 Nitroglycerin Sl Tabs [Nitrostat] 0.4 mg SUBLINGUAL Q5M PRN #25 tab 07/12/17 Meclizine [Antivert] 12.5 mg PO Q6H PRN 14 Days #56 02/02/22 tablet Allergies Allergy/AdvReac Type Severity Reaction Status Date / Time No Known Allergies Allergy Verified 02/02/22 20:02 Review of Systems ROS Statement: Those systems with pertinent positive or pertinent negative responses have been documented in the HPI. Review of Systems: CONST: Denies fever EYES: Denies blurry vision ENT: Denies nasal congestion C/V: Denies Chest pain RESP: Denies shortness of breath GI: Denies abdominal pain : Denies dysuria SKIN: Denies rash. MSK: Denies joint pain. NEURO: Endorses dizziness ROS Other: All systems not noted in ROS Statement are negative. Past Medical History Past Medical History: Coronary Artery Disease (CAD), GERD/Reflux, Hyperlipidemia, Hypertension, Myocardial Infarction ([place]), Pneumonia Additional Past Medical History / Comment(s): See Chantelle's H&P,SO B,Pneumonia January Last Myocardial Infarction Date:: 2009 History of Any Multi-Drug Resistant Organisms: None Reported Past Surgical History: Appendectomy, Coronary Bypass/CABG, Heart Catheterization With Stent, Hernia Repair Additional Past Surgical History / Comment(s): CABG-at age 38-3 vessel,nishi inguinal hernia,umbilical hernia,lt shoulder surgery HEART STENTS Past Anesthesia/Blood Transfusion Reactions: No Reported Reaction Date of Last Stent Placement:: 2009 Past Psychological History: No Psychological Hx Reported Past Alcohol Use History: Occasional Past Drug Use History: None Reported - Past Family History Mother Family Medical History: Coronary Artery Disease (CAD), Pulmonary Embolus Additional Family Medical History / Comment(s): CABG Father Family Medical History: Coronary Artery Disease (CAD) Additional Family Medical History / Comment(s): CABG, traumatic golf cart General Exam - General Exam Comments Initial Comments: General: Appears in no acute distress. HEAD: Normal with no signs of head trauma. EYES: PERRLA, EOMI, conjunctiva normal, no discharge. Pupils 3 mm and equal bilaterally laterally. No nystagmus. ENT: Hearing grossly intact, normal oropharynx. RESPIRATORY: Clear breath sounds bilaterally. No wheezes, rales, or rhonchi. C/V: Regular rate and rhythm. S1 and S2 auscultated, no edema, peripheral pulses 2+ and intact throughout ABD: Abd is soft, nontender, nondistended EXT: Normal range of motion, no obvious deformity SKIN: No rashes or lesions observed on exposed skin. NEURO: Alert and oriented x 4. Cranial nerves II-XII intact. No focal sensory or strength deficits. NIH of 0. No ataxia. However patient is having the sensation of vertigo when he sits up or stands up. Normal finger-nose testing. Normal [id number] testing. No dysdiadochokinesia. Limitations: no limitations Course Vital Signs 02/02/22 02/02/22 16:08 20:44 Temperature 98.1 F Pulse Rate 56 L 61 Respiratory 16 15 Rate Blood Pressure 123/86 129/59 O2 Sat by Pulse 98 98 Oximetry Medical Decision Making - Medical Decision Making Based on the patient's presentation and physical exam, I'm concerned for vertigo. He did have chest pain yesterday but that has since resolved and he is having no current chest pain and has not had chest pain today. States the chest pain yesterday was fleeting. Does have a history of stents and MIs. No other acute complaints at this time. No history of vertigo. I did recommend that we obtain CT imaging at this time as the [place]-Hallpike maneuver was inconclusive. He was in agreement this plan. Will be symptomatically treated with meclizine and IV fluids. Cardiopulmonary workup will also be obtained. He was in agreement with this plan. Vital signs within normal limits. EKG showed no signs of acute ischemia. Patient does have a chronically inverted T-wave in lead V2 which is seen on prior EKGs. Chest x-ray showed no acute cardio pulmonary process CT brain shows no acute intracranial process. Laboratory studies are remarkable for a mild leukocytosis of 11.2 which is likely reactive. Troponin is undetectable. Remainder the labs are within normal limits.CT angiogram of the head shows no acute process. On reevaluation, patient is feeling improved. Symptoms are resolved. He is able to ambulate without difficulty. We discussed his results. We discussed his negative workup. He is completely asymptomatic at this time. Patient never had chest pain hearing, and it was yesterday. Cardiac workup was unremarkable. Stroke workup was negative. Symptoms are resolved. He likely has a peripheral cause for his vertigo. Will be discharged home on meclizine and discussed follow-up with his PCP within the next 3 days. He was in agreement this plan. I will provide the patient with a prescription for meclizine. I instructed the patient to follow up with their PCP in the next 1-3 days. I explained that the patient should return to the emergency department if they experience any worsening symptoms. Strict return precautions were discussed with the patient. The patient expressed understanding of these instructions. I answered all questions that the patient had. The patient was discharged home in good condition with their prescriptions and follow up information. - Lab Data Result diagrams: 02/02/22 16:37 02/02/22 16:37 Lab Results 02/02/22 02/02/22 02/02/22 Range/Units 16:37 16:37 16:37 WBC 11.2 H (3.8-10.6) k/uL RBC 5.18 (4.30-5.90) m/uL Hgb 15.7 (13.0-17.5) gm/dL Hct 44.3 (39.0-53.0) % MCV 85.5 (80.0-100.0) fL MCH 30.3 (25.0-35.0) pg MCHC 35.4 (31.0-37.0) g/dL RDW 12.7 (11.5-15.5) % Plt Count 168 (150-450) k/uL MPV 9.7 Neutrophils % 64 % Lymphocytes % 28 % Monocytes % 4 % Eosinophils % 2 % Basophils % 1 % Neutrophils # 7.2 (1.3-7.7) k/uL Lymphocytes # 3.1 (1.0-4.8) k/uL Monocytes # 0.5 (0-1.0) k/uL Eosinophils # 0.2 (0-0.7) k/uL Basophils # 0.1 (0-0.2) k/uL PT 11.1 (9.0-12.0) sec INR 1.0 (<1.2) APTT 23.4 (22.0-30.0) sec Sodium 140 (137-145) mmol/L Potassium 4.0 (3.5-5.1) mmol/L Chloride 105 (98-107) mmol/L Carbon Dioxide 21 L (22-30) mmol/L Anion Gap 14 mmol/L BUN 17 (9-20) mg/dL Creatinine 0.79 (0.66-1.25) mg/dL Est GFR (CKD-EPI)AfAm >90 (>60 ml/min/1.73 sqM) Est GFR (CKD-EPI)NonAf >90 (>60 ml/min/1.73 sqM) Glucose 102 H (74-99) mg/dL Calcium 9.3 (8.4-10.2) mg/dL Total Bilirubin 0.8 (0.2-1.3) mg/dL AST 32 (17-59) U/L ALT 27 (4-49) U/L Alkaline Phosphatase 103 (38-126) U/L Troponin I (0.000-0.034) ng/mL Total Protein 6.5 (6.3-8.2) g/dL Albumin 4.2 (3.5-5.0) g/dL 02/02/22 Range/Units 16:37 WBC (3.8-10.6) k/uL RBC (4.30-5.90) m/uL Hgb (13.0-17.5) gm/dL Hct (39.0-53.0) % MCV (80.0-100.0) fL MCH (25.0-35.0) pg MCHC (31.0-37.0) g/dL RDW (11.5-15.5) % Plt Count (150-450) k/uL MPV Neutrophils % % Lymphocytes % % Monocytes % % Eosinophils % % Basophils % % Neutrophils # (1.3-7.7) k/uL Lymphocytes # (1.0-4.8) k/uL Monocytes # (0-1.0) k/uL Eosinophils # (0-0.7) k/uL Basophils # (0-0.2) k/uL PT (9.0-12.0) sec INR (<1.2) APTT (22.0-30.0) sec Sodium (137-145) mmol/L Potassium (3.5-5.1) mmol/L Chloride (98-107) mmol/L Carbon Dioxide (22-30) mmol/L Anion Gap mmol/L BUN (9-20) mg/dL Creatinine (0.66-1.25) mg/dL Est GFR (CKD-EPI)AfAm (>60 ml/min/1.73 sqM) Est GFR (CKD-EPI)NonAf (>60 ml/min/1.73 sqM) Glucose (74-99) mg/dL Calcium (8.4-10.2) mg/dL Total Bilirubin (0.2-1.3) mg/dL AST (17-59) U/L ALT (4-49) U/L Alkaline Phosphatase (38-126) U/L Troponin I <0.012 (0.000-0.034) ng/mL Total Protein (6.3-8.2) g/dL Albumin (3.5-5.0) g/dL - EKG Data -: EKG Interpreted by Me EKG Comments: 12-lead Electrocardiogram Interpretation Note EKG was reviewed and interpreted by myself. 12-lead ECG performed at 1631 is interpreted by me as revealing sinus bradycardia at a rate of 49 beats per minute. [place] is normal. IA interval is 160 ms, QRS durations 104 ms, QTc is 427 ms.. There is an isolated T-wave inversion in lead V2 which is seen on prior EKGs from 2018. There were no ST or T wave abnormalities to suggest myocardial ischemia or injury. R wave progression across the precordium was satisfactory. By my interpretation this EKG is non-diagnostic for acute ischemia. Disposition Clinical Impression: Vertigo Disposition: HOME SELF-CARE Condition: Good Instructions (If sedation given, give patient instructions): Vertigo (ED), Benign Paroxysmal Positional Vertigo (ED), Dizziness (ED) Prescriptions: Meclizine [Antivert] 12.5 mg PO Q6H PRN 14 Days #56 tablet PRN Reason: Vertigo Is patient prescribed a controlled substance at d/c from ED?: No Referrals: López Tavarez MD [Primary Care Provider] - 1-2 days Time of Disposition: 19:50
--- NOTE | 2022-02-02 19:10 | CT ---
EXAMINATION TYPE: CT angio head neck DATE OF EXAM: 02/02/2022 COMPARISON: None HISTORY: vertigo CT DLP: 951.5 mGycm Automated exposure control for dose reduction was used. CONTRAST: Performed with IV Contrast, patient injected with 65 mL of Isovue 370. Images obtained from the aortic arch through the vertex of the brain with the IV contrast. There are Three-D postprocessed images. There is normal branching pattern of the great vessels on the aortic arch. There is arterial flow in the subclavian arteries bilaterally. There is arterial flow in the common internal and external carot id arteries bilaterally. There is wide patency of the carotid artery bifurcations. There is arterial flow in both vertebral arteries. There is arterial flow in the vertebral basilar artery system. No ev idence of carotid or vertebral artery aneurysm or dissection. There is arterial flow in the anterior middle and posterior cerebral arteries bilaterally. No evidenc e of intracranial aneurysm or neovascularity. No mass effect. No evidence of hemodynamic stenosis. Th ere is normal enhancement of the venous sinuses. IMPRESSION: Negative CT angiogram of the neck. Negative CT angiogram of the brain.
[2022-02-02 20:45] VITALS: BP 129/59; PULSE 61; RESP 15
== END 2022-02-02 20:46 | disposition home or self-care (01) ==
LOC: EC 16:00
DX: R42 Dizziness and giddiness (principal); K21.9 Gastro-esophageal reflux disease without esophagitis; Z79.899 Other long term (current) drug therapy; E78.5 Hyperlipidemia, unspecified; I10 Essential (primary) hypertension; I25.2 Old myocardial infarction
CPT/HCPCS: 36415; 93005; 80053; 84484; 85025; 85610; 85730; 71045; 70496; 70450; 70498; 99285; Q9967